=== PATIENT | female | born 1985 | race Caucasian/White ===

== ENCOUNTER 2016-04-11 08:47 | Emergency (ER) | payer OTHER ==
--- NOTE | 2016-04-11 10:12 | ED ---
Skin/Abscess/FB HPI - General Chief complaint: Skin/Abscess/Foreign Body Stated complaint: Arm infection Time Seen by Provider: 04/11/16 10:06 Source: patient, RN notes reviewed Mode of arrival: ambulatory Limitations: no limitations - History of Present Illness Initial comments: 30-year-old female presents to the emergency department with a chief complaint of right arm swelling and redness. Patient states that she is a heroin abuser. Patient states that she injected about 3 days ago and she believes part of the needle broke off. Patient states she's been applying warm compresses but is not significantly getting better. Patient has noticed some swelling to the arm. Patient denies any fever or chills. Patient states that she has not had any other symptoms with this. Patient states that there is no pain with movement of the right elbow. Patient denies any recent fever, chills, shortness of breath, chest pain, back pain, abdominal pain, nausea vomiting, numbness or tingling, dysuria or hematuria, constipation or diarrhea, headaches or visual changes, or any other current symptoms. - Related Data Home Medications Medication Instructions Recorded Confirmed Ibuprofen [Motrin] 400 mg PO Q6HR PRN 04/11/16 04/11/16 Naproxen Sodium [Aleve] 220 mg PO Q12HR PRN 04/11/16 04/11/16 Previous Rx's Medication Instructions Recorded Sulfamethox-Tmp 800-160Mg [Bactrim 2 each PO Q12HR #56 tab 04/11/16 DS 800-160 mg] Allergies Allergy/AdvReac Type Severity Reaction Status Date / Time No Known Allergies Allergy Verified 04/11/16 10:22 Review of Systems ROS Statement: Those systems with pertinent positive or pertinent negative responses have been documented in the HPI. ROS Other: All systems not noted in ROS Statement are negative. Past Medical History Additional Past Medical History / Comment(s): CARPAL TUNNEL History of Any Multi-Drug Resistant Organisms: None Reported Past Surgical History: No Surgical Hx Reported Past Psychological History: Depression Smoking Status: Current every day smoker Past Alcohol Use History: None Reported Past Drug Use History: Heroin General Exam - General Exam Comments Initial Comments: General: The patient is awake and alert, in no distress, and does not appear acutely ill. Neck: The neck is supple, there is no tenderness. Cardiovascular: There is a regular rate and rhythm. No murmur, rub or gallop is appreciated. Respiratory: Lungs are clear to auscultation, respirations are non-labored, breath sounds are equal. No wheezes, stridor, rales, or rhonchi. Musculoskeletal: Sensation intact with 2+ pulses that the right upper extremity. Full range of motion of right shoulder right elbow and right wrist. Patient does appear to have a small abscess to the medial aspect of the right elbow there is some fluctuation. No associated cellulitis noted. Neurological: CN II-XII intact, There are no obvious motor or sensory deficits. Coordination appears grossly intact. Speech is normal. Skin: Skin is warm and dry and no rashes or lesions are noted. Psychiatric: Normal mood and affect. Limitations: no limitations Course Vital Signs 04/11/16 08:57 Temperature 98.1 F Pulse Rate 88 Respiratory 20 Rate Blood Pressure 113/94 O2 Sat by Pulse 99 Oximetry Procedures - Procedures Initial comment: Procedure: Incision and drainage The skin overlying the abscess was prepped with Betadine, and anesthetized with 1% lidocaine without epinephrine. A #11 scalpel was then used to incise the abscess. Some purulent material was then extracted from the lesion. A foreign body was also removed from the wound. It was a needle. Gauze dressing placed on top, The patient tolerated the procedure well. Medical Decision Making - Medical Decision Making 30-year-old female presents emergency Department with a chief complaint of right elbow pain and what appears to be an abscess. At this time patient underwent an x-ray. At this time x-ray does show with removal of the foreign body. Patient did have an I&D due to there was purulent material at the site. At this time we will set the patient antibiotics. We discussed return for follow-up. Patient stated that she understood. We discussed. I'm. Patient's questions were answered. She will be discharged. - Radiology Data Radiology results: report reviewed, image reviewed Disposition Clinical Impression: Abscess of right forearm, Foreign body in right forearm Disposition: HOME SELF-CARE Condition: Stable Instructions: Abscess (ED) Additional Instructions: Please use medication as discussed. Please follow up with family doctor if symptoms have not improved over the next two days. Please return to the emergency room if your symptoms increase or worsen or for any other concerns. Prescriptions: Sulfamethox-Tmp 800-160Mg [Bactrim DS 800-160 mg] 2 each PO Q12HR #56 tab Referrals: Yemi Burk MD [STAFF PHYSICIAN] - 1-2 days Time of Disposition: 10:42
--- NOTE | 2016-04-11 10:16 | XR ---
EXAMINATION TYPE: XR elbow complete RT DATE OF EXAM: 04/11/2016 10:09 AM COMPARISON: NONE HISTORY: Foreign body TECHNIQUE: 3 view right elbow FINDINGS: Soft tissue swelling is in the antecubital fossa. There is a radiopaque foreign body within the antecubital fossa region. This is relatively superficial. The osseous structures appear intact. Radius aligns normally with the humerus. Anterior and posterior fat pads are normal. IMPRESSION: 1. Radiopaque foreign body within the antecubital fossa.
--- NOTE | 2016-04-11 10:37 | XR ---
EXAMINATION TYPE: XR elbow limited RT DATE OF EXAM: 04/11/2016 10:32 AM COMPARISON: NONE HISTORY: Radiopaque foreign body right elbow TECHNIQUE: 2 views right elbow FINDINGS: Previous superficial radiopaque foreign body is been removed. Soft tissue swelling over the antecubital fossa region remains present. IMPRESSION: 1. Removal of the previous foreign body.
[2016-04-11 10:51] VITALS: BP 105/73; PULSE 93; RESP 18; TEMP 98.4
== END 2016-04-11 10:50 | disposition home or self-care (01) ==
LOC: EC 08:47
DX: L02.413 Cutaneous abscess of right upper limb (principal); M79.5 Residual foreign body in soft tissue; F17.200 Nicotine dependence, unspecified, uncomplicated
CPT/HCPCS: 10060; 10120; 99283

== ENCOUNTER 2016-10-08 01:26 | Observation (INO) | payer OTHER ==
[2016-10-08 01:31] VITALS: RESP 16
[2016-10-08] MEDS ORDERED: SODIUM CHLORIDE 0.9% 1,000 ML IV ONE (01:39)
[2016-10-08 02:09] LABS: Basophils # (A) 0.1 k/uL (0-0.2); Basophils % (A) 1 %; CH 30.9; CHCM 36.5; Eosinophils # (A) 0.2 k/uL (0-0.7); Eosinophils % (A) 3 %; HDW 2.95; HGB 13.5 gm/dL (11.4-16.0); Luc # (Auto) 0.16; Luc % (Auto) 2; Lymphocytes % (A) 28 %; MCH 29.5 pg (25.0-35.0); MCHC 34.7 g/dL (31.0-37.0); Mean Platelet Volume 8.5; Monocytes # (A) 0.4 k/uL (0-1.0); Monocytes % (A) 6 %; Neutrophils # (A) 4.3 k/uL (1.3-7.7); Neutrophils % (A) 59 %; RBC 4.59 m/uL (3.80-5.40); RDW 13.9 % (11.5-15.5); WBC 7.2 k/uL (3.8-10.6); WBC (Perox) 7.08
[2016-10-08 02:21] LABS: ALT 107 U/L (9-52); AST 49 U/L (14-36); Acetaminophen <10.0 ug/mL; Alcohol <10 mg/dL; Alkaline Phosphatase 67 U/L (38-126); Anion Gap 13 mmol/L; Blood Urea Nitrogen 16 mg/dL (7-17); Carbon Dioxide 22 mmol/L (22-30); Chloride 108 mmol/L (98-107); Glucose 75 mg/dL (74-99); Non-African American GFR(MDRD) >60 (>60 ml/min/1.73 sqM); Potassium 3.2 mmol/L (3.5-5.1); Salicylate <1.0 mg/dL; Sodium 143 mmol/L (137-145); Total Bilirubin 1.7 mg/dL (0.2-1.3); Total Protein 6.7 g/dL (6.3-8.2)
[2016-10-08] MEDS ORDERED: NALOXONE 0.4 MG/ML 1 ML VIAL IV PRN (03:12)
[2016-10-08] MEDS ORDERED: SODIUM CHLORIDE 0.9% 1,000 ML IV SCH (03:15)
--- NOTE | 2016-10-08 03:25 | ED ---
General Adult HPI - General Chief complaint: Alcohol Stated complaint: ETOH Time Seen by Provider: 10/08/16 01:34 Source: patient, EMS, RN notes reviewed Mode of arrival: EMS Limitations: no limitations - History of Present Illness Initial comments: 31-year-old female presents by EMS with chief complaint of alcohol intoxication. Patient was unable to contribute to history. EMS was called by family member who was not present on scene. There was no substances found at the scene. She does have a history of opiate overdose and heroin abuse in the past. Patient is arousable with sternal rub. On questioning she does admit to taking approximately 5 Xanax, unknown strength. Denies alcohol intoxication. Patient does deny suicidal or homicidal ideation. However complete history is not possible at this time. - Related Data Home Medications Medication Instructions Recorded Confirmed Ibuprofen [Motrin] 400 mg PO Q6HR PRN 04/11/16 04/11/16 Naproxen Sodium [Aleve] 220 mg PO Q12HR PRN 04/11/16 04/11/16 Previous Rx's Medication Instructions Recorded Sulfamethox-Tmp 800-160Mg [Bactrim 2 each PO Q12HR #56 tab 04/11/16 DS 800-160 mg] Allergies Allergy/AdvReac Type Severity Reaction Status Date / Time No Known Allergies Allergy Verified 10/08/16 01:31 Review of Systems ROS Statement: Those systems with pertinent positive or pertinent negative responses have been documented in the HPI. ROS Other: All systems not noted in ROS Statement are negative. Past Medical History Additional Past Medical History / Comment(s): CARPAL TUNNEL History of Any Multi-Drug Resistant Organisms: None Reported Past Surgical History: No Surgical Hx Reported Past Psychological History: Depression Smoking Status: Current every day smoker Past Alcohol Use History: None Reported Past Drug Use History: Heroin General Exam Limitations: no limitations General appearance: in no apparent distress, lethargic Head exam: Present: atraumatic, normocephalic Eye exam: Present: normal appearance, PERRL ENT exam: Present: mucous membranes moist Neck exam: Present: normal inspection. Absent: tenderness, meningismus Respiratory exam: Present: normal lung sounds bilaterally. Absent: respiratory distress Cardiovascular Exam: Present: regular rate, normal rhythm GI/Abdominal exam: Present: soft. Absent: distended, tenderness External exam: Present: normal external exam Extremities exam: Present: normal inspection, full ROM, normal capillary refill. Absent: pedal edema Back exam: Present: normal inspection, full ROM Neurological exam: Absent: motor sensory deficit Psychiatric exam: Present: flat affect Skin exam: Present: warm, dry, intact. Absent: cyanosis, diaphoretic Course Vital Signs 10/08/16 01:28 Temperature 97.8 F Pulse Rate 89 Respiratory 16 Rate Blood Pressure 123/85 O2 Sat by Pulse 98 Oximetry EKG Findings - EKG Comments: EKG Findings:: EKG shows normal sinus rhythm, ventricular rate 81, CA interval 136, QRS duration 84, QTC is prolonged at 496, no ST segment elevation or depression Medical Decision Making - Medical Decision Making 31-year-old female presents with altered mental status. Patient does admit to taking approximally 5 Xanax. She denies suicidal ideation. Examination shows no focal neurologic findings. Patient is lethargic but arousable to sternal rub. She will answer simple questions. Laboratory studies including CBC, CMP, are unremarkable. Tylenol and aspirin levels are nondetectable. Alcohol is less than 10. Urinalysis is positive for amphetamines, and benzodiazepines. Patient's presentation is consistent with benzodiazepine overdose. On reevaluation, patient's neurological examination is unchanged. No focal findings. She will still respond. She is protecting her airway. Patient will be admitted for reevaluation. Psychiatry is placed on consult as I 'm not confident in the patient's mental status at this time. Unable to assess her suicide risk. Diagnosis: Benzodiazepine overdose - Lab Data Result diagrams: 10/08/16 01:58 10/08/16 01:58 Lab Results 10/08/16 10/08/16 10/08/16 Range/Units 01:58 01:58 02:53 WBC 7.2 (3.8-10.6) k/uL RBC 4.59 (3.80-5.40) m/uL Hgb 13.5 (11.4-16.0) gm/dL Hct 39.0 (34.0-46.0) % MCV 85.0 (80.0-100.0) fL MCH 29.5 (25.0-35.0) pg MCHC 34.7 (31.0-37.0) g/dL RDW 13.9 (11.5-15.5) % Plt Count 240 (150-450) k/uL Neutrophils % 59 % Lymphocytes % 28 % Monocytes % 6 % Eosinophils % 3 % Basophils % 1 % Neutrophils # 4.3 (1.3-7.7) k/uL Lymphocytes # 2.0 (1.0-4.8) k/uL Monocytes # 0.4 (0-1.0) k/uL Eosinophils # 0.2 (0-0.7) k/uL Basophils # 0.1 (0-0.2) k/uL Sodium 143 (137-145) mmol/L Potassium 3.2 L (3.5-5.1) mmol/L Chloride 108 H (98-107) mmol/L Carbon Dioxide 22 (22-30) mmol/L Anion Gap 13 mmol/L BUN 16 (7-17) mg/dL Creatinine 0.60 (0.52-1.04) mg/dL Est GFR (MDRD) Af Amer >60 (>60 ml/min/1.73 sqM) Est GFR (MDRD) Non-Af >60 (>60 ml/min/1.73 sqM) Glucose 75 (74-99) mg/dL Calcium 9.0 (8.4-10.2) mg/dL Total Bilirubin 1.7 H (0.2-1.3) mg/dL AST 49 H (14-36) U/L ALT 107 H (9-52) U/L Alkaline Phosphatase 67 (38-126) U/L Total Protein 6.7 (6.3-8.2) g/dL Albumin 4.1 (3.5-5.0) g/dL Urine HCG, Qual (Not Detectd) Salicylates <1.0 mg/dL Urine Opiates Screen Not Detected (NotDetected) Ur Oxycodone Screen Not Detected (NotDetected) Urine Methadone Screen Not Detected (NotDetected) Ur Propoxyphene Screen Not Detected (NotDetected) Acetaminophen <10.0 ug/mL Ur Barbiturates Screen Not Detected (NotDetected) U Tricyclic Antidepress Not Detected (NotDetected) Ur Phencyclidine Scrn Not Detected (NotDetected) Ur Amphetamines Screen Detected H (NotDetected) U Methamphetamines Scrn Detected H (NotDetected) U Benzodiazepines Scrn Detected H (NotDetected) Urine Cocaine Screen Not Detected (NotDetected) U Marijuana (THC) Screen Not Detected (NotDetected) Serum Alcohol <10 mg/dL 10/08/16 Range/Units 02:53 WBC (3.8-10.6) k/uL RBC (3.80-5.40) m/uL Hgb (11.4-16.0) gm/dL Hct (34.0-46.0) % MCV (80.0-100.0) fL MCH (25.0-35.0) pg MCHC (31.0-37.0) g/dL RDW (11.5-15.5) % Plt Count (150-450) k/uL Neutrophils % % Lymphocytes % % Monocytes % % Eosinophils % % Basophils % % Neutrophils # (1.3-7.7) k/uL Lymphocytes # (1.0-4.8) k/uL Monocytes # (0-1.0) k/uL Eosinophils # (0-0.7) k/uL Basophils # (0-0.2) k/uL Sodium (137-145) mmol/L Potassium (3.5-5.1) mmol/L Chloride (98-107) mmol/L Carbon Dioxide (22-30) mmol/L Anion Gap mmol/L BUN (7-17) mg/dL Creatinine (0.52-1.04) mg/dL Est GFR (MDRD) Af Amer (>60 ml/min/1.73 sqM) Est GFR (MDRD) Non-Af (>60 ml/min/1.73 sqM) Glucose (74-99) mg/dL Calcium (8.4-10.2) mg/dL Total Bilirubin (0.2-1.3) mg/dL AST (14-36) U/L ALT (9-52) U/L Alkaline Phosphatase (38-126) U/L Total Protein (6.3-8.2) g/dL Albumin (3.5-5.0) g/dL Urine HCG, Qual Not Detected (Not Detectd) Salicylates mg/dL Urine Opiates Screen (NotDetected) Ur Oxycodone Screen (NotDetected) Urine Methadone Screen (NotDetected) Ur Propoxyphene Screen (NotDetected) Acetaminophen ug/mL Ur Barbiturates Screen (NotDetected) U Tricyclic Antidepress (NotDetected) Ur Phencyclidine Scrn (NotDetected) Ur Amphetamines Screen (NotDetected) U Methamphetamines Scrn (NotDetected) U Benzodiazepines Scrn (NotDetected) Urine Cocaine Screen (NotDetected) U Marijuana (THC) Screen (NotDetected) Serum Alcohol mg/dL Critical Care Time Critical Care Time: Yes Total Critical Care Time: 35 Disposition Clinical Impression: Benzodiazepine overdose Disposition: ADMITTED IP TO THIS [facility] Condition: Stable Referrals: None,Stated [Primary Care Provider] - 1-2 days Decision to Admit Reason: Admit from EC Decision Date: 10/08/16 Decision Time: 03:25
[2016-10-08 07:13] VITALS: BP 121/81; PULSE 88; TEMP 98
--- NOTE | 2016-10-08 10:07 | P.HPIM ---
History of Present Illness Is a discharge summary as well patient left against medical respiration number had some slight radiation patient was admitted for benzo overdose this was accidental There is no position that was made hence patient was never evaluated and left against medical advise. Past Medical History Additional Past Medical History / Comment(s): CARPAL TUNNEL History of Any Multi-Drug Resistant Organisms: None Reported Past Surgical History: No Surgical Hx Reported Past Psychological History: Depression Smoking Status: Unknown if ever smoked Past Alcohol Use History: None Reported Past Drug Use History: Heroin Medications and Allergies Home Medications Medication Instructions Recorded Confirmed Type No Known Home Medications [No 10/08/16 10/08/16 History Known Home Medications] Allergies Allergy/AdvReac Type Severity Reaction Status Date / Time No Known Allergies Allergy Verified 10/08/16 08:25 Physical Exam Vitals: Vital Signs Temp Pulse Pulse Resp BP BP Pulse Ox 10/08/16 07:12 98 F 88 16 121/81 96 10/08/16 05:30 97.8 F 83 16 104/64 99 10/08/16 03:23 90 16 114/79 98 10/08/16 01:28 97.8 F 89 16 123/85 98 Intake and Output 10/07/16 10/08/16 10/08/16 22:59 06:59 14:59 Intake Total 75 Balance 75 Intake: Intake, IV Titration 75 Amount Sodium Chloride 0.9% 1, 75 000 ml @ 75 mls/hr IV . [id number] Rx#:[id number] Other: Weight 67.132 kg Results CBC & Chem 7: 10/08/16 01:58 10/08/16 01:58 Labs: Abnormal Lab Results - Last 24 Hours (Table) 10/08/16 10/08/16 Range/Units 01:58 02:53 Potassium 3.2 L (3.5-5.1) mmol/L Chloride 108 H (98-107) mmol/L Total Bilirubin 1.7 H (0.2-1.3) mg/dL AST 49 H (14-36) U/L ALT 107 H (9-52) U/L Ur Amphetamines Screen Detected H (NotDetected) U Methamphetamines Scrn Detected H (NotDetected) U Benzodiazepines Scrn Detected H (NotDetected) Thrombosis Risk Factor Assmnt - Choose All That Apply Any of the Below Risk Factors Present?: No
== END 2016-10-08 09:58 | disposition left against medical advice (07) ==
LOC: EC 01:26 → 3SUR 03:16
PROVIDERS: ADMIT Internal Medicine; ATTEND Internal Medicine
DX: T42.4X1A Poisoning by benzodiazepines, accidental (unintentional), initial encounter (principal); Z53.21 Procedure and treatment not carried out due to patient leaving prior to being seen by health care provider; F32.9 Major depressive disorder, single episode, unspecified; F17.200 Nicotine dependence, unspecified, uncomplicated; Z87.898 Personal history of other specified conditions
CPT/HCPCS: 99291; 96360; 36415; 93005; 80053; 85025; 81025; 80306; 83520 ×2; 80320; G0378

== ENCOUNTER 2017-02-22 18:53 | Inpatient (IN) | payer OTHER ==
[2017-02-22] MEDS ORDERED: SODIUM CHLORIDE 0.9% 1,000 ML IV STA (19:48)
[2017-02-22] MEDS ORDERED: ACETAMINOPHEN TAB 500 MG TAB PO STA (19:49)
--- NOTE | 2017-02-22 20:07 | ED ---
General Adult HPI - General Chief complaint: Chest Pain Stated complaint: Chest pain Time Seen by Provider: 02/22/17 19:36 Source: patient, RN notes reviewed, old records reviewed Mode of arrival: ambulatory Limitations: no limitations - History of Present Illness Initial comments: 31-year-old female presents for evaluation of sharp central chest pain. Pain is been present for the past 3 days. She has had cough, nasal congestion and sore throat. Patient has had subjective fever and chills over this time as well. She does report some pain with deep inspiration. Pain is over her sternum. Patient has been suppressing her cough secondary to pain. Denies abdominal pain. Denies dysuria. Patient did have a contusion to her right lower extremity passively 5 days ago. She is currently in a brace. No history of DVT or PE. Not currently on oral contraceptives. - Related Data Home Medications Medication Instructions Recorded Confirmed No Known Home Medications [No 10/08/16 02/22/17 Known Home Medications] Allergies Allergy/AdvReac Type Severity Reaction Status Date / Time No Known Allergies Allergy Verified 02/22/17 20:55 Review of Systems ROS Statement: Those systems with pertinent positive or pertinent negative responses have been documented in the HPI. ROS Other: All systems not noted in ROS Statement are negative. Past Medical History Additional Past Medical History / Comment(s): CARPAL TUNNEL History of Any Multi-Drug Resistant Organisms: None Reported Past Surgical History: No Surgical Hx Reported Past Psychological History: Depression Smoking Status: Current every day smoker Past Alcohol Use History: None Reported Past Drug Use History: Heroin General Exam Limitations: no limitations General appearance: alert, in no apparent distress Head exam: Present: atraumatic, normocephalic Eye exam: Present: normal appearance, PERRL ENT exam: Present: mucous membranes dry Neck exam: Present: normal inspection. Absent: tenderness, meningismus Respiratory exam: Present: normal lung sounds bilaterally, chest wall tenderness. Absent: respiratory distress Cardiovascular Exam: Present: normal rhythm, tachycardia GI/Abdominal exam: Present: soft. Absent: distended, tenderness, guarding Extremities exam: Present: normal inspection, normal capillary refill. Absent: pedal edema Back exam: Present: normal inspection, full ROM Neurological exam: Present: alert, CN II-XII intact. Absent: oriented X3, motor sensory deficit Psychiatric exam: Present: normal affect, normal mood Skin exam: Present: warm, dry, intact. Absent: cyanosis, diaphoretic Course Vital Signs 02/22/17 02/22/17 02/22/17 19:12 20:52 21:00 Temperature 102.9 F H Pulse Rate 130 H 114 H 126 H Respiratory 18 20 20 Rate Blood Pressure 110/60 110/57 109/55 O2 Sat by Pulse 95 97 98 Oximetry 02/22/17 02/22/17 02/22/17 21:13 21:29 21:57 Temperature 100.9 F H Pulse Rate 111 H 111 H Respiratory 22 22 22 Rate Blood Pressure 110/61 110/64 O2 Sat by Pulse 97 98 Oximetry 02/22/17 22:00 Temperature Pulse Rate 104 H Respiratory 22 Rate Blood Pressure 118/54 O2 Sat by Pulse 98 Oximetry EKG Findings - EKG Comments: EKG Findings:: Chest x-ray shows sinus tachycardia, ventricular rate 137, GA interval 142, castration 80, QTc 465 no signs of ischemia Medical Decision Making - Medical Decision Making 31-year-old female presenting with dyspnea and chest pain. Patient is febrile and tachycardic. She is in moderate distress at the time my initial evaluation. Chest x-rays obtained, shows right lower lobe pneumonia. Ultrasound of the right lower extremity is obtained for concerns of DVT as the patient had contusion 5 days ago, has had some swelling, and is tachycardic and tachypneic. This is negative for DVT. CT angiography obtained shows bilateral pulmonary infiltrates concern for cavitation and possibility of septic emboli. This does fit with the patient's clinical picture as well as history of IV drug use. She states she most recently used IV heroin approximately 3 days ago. White blood cell count 10.8, hemoglobin 11.3, d-dimer elevated potassium 3.1 this is replaced. Sodium is low 126 per patient does have elevation in liver enzymes, she hepatitis panel is pending. This may be secondary to hypoperfusion. Patient is started on broad-spectrum antibiotics including vancomycin, and Zosyn. Echo is pending. Case discussed with Dr. Silva will accept the patient to ICU. Cardiology and infectious disease are placed on consult. - Lab Data Result diagrams: 02/22/17 20:16 02/22/17 20:16 Lab Results 02/22/17 02/22/17 02/22/17 Range/Units 20:16 20:16 20:16 WBC 10.8 H (3.8-10.6) k/uL RBC 4.09 (3.80-5.40) m/uL Hgb 11.3 L (11.4-16.0) gm/dL Hct 32.7 L (34.0-46.0) % MCV 80.0 (80.0-100.0) fL MCH 27.7 (25.0-35.0) pg MCHC 34.6 (31.0-37.0) g/dL RDW 14.2 (11.5-15.5) % Plt Count 113 L (150-450) k/uL Neutrophils % 85 % Lymphocytes % 7 % Monocytes % 4 % Eosinophils % 1 % Basophils % 0 % Neutrophils # 9.2 H (1.3-7.7) k/uL Lymphocytes # 0.7 L (1.0-4.8) k/uL Monocytes # 0.4 (0-1.0) k/uL Eosinophils # 0.1 (0-0.7) k/uL Basophils # 0.0 (0-0.2) k/uL PT (9.0-12.0) sec INR (<1.2) APTT (22.0-30.0) sec D-Dimer (<0.60) mg/L FEU Sodium 126 L (137-145) mmol/L Potassium 3.1 L (3.5-5.1) mmol/L Chloride 88 L (98-107) mmol/L Carbon Dioxide 31 H (22-30) mmol/L Anion Gap 7 mmol/L BUN 20 H (7-17) mg/dL Creatinine 0.80 (0.52-1.04) mg/dL Est GFR (MDRD) Af Amer >60 (>60 ml/min/1.73 sqM) Est GFR (MDRD) Non-Af >60 (>60 ml/min/1.73 sqM) Glucose 97 (74-99) mg/dL Calcium 8.0 L (8.4-10.2) mg/dL Magnesium 2.2 (1.6-2.3) mg/dL Total Bilirubin 1.2 (0.2-1.3) mg/dL AST 119 H (14-36) U/L ALT 89 H (9-52) U/L Alkaline Phosphatase 146 H (38-126) U/L Total Creatine Kinase 358 H (30-135) U/L CK-MB (CK-2) 1.0 (0.0-2.4) ng/mL CK-MB (CK-2) Rel Index 0.3 Troponin I <0.012 (0.000-0.034) ng/mL Total Protein 6.0 L (6.3-8.2) g/dL Albumin 2.9 L (3.5-5.0) g/dL Lipase 33 (23-300) U/L Urine Color Urine Appearance (Clear) Urine pH (5.0-8.0) Ur Specific [place] (1.001-1.035) Urine Protein (Negative) Urine Glucose (UA) (Negative) Urine Ketones (Negative) Urine Blood (Negative) Urine Nitrite (Negative) Urine Bilirubin (Negative) Urine Urobilinogen (<2.0) mg/dL Ur Leukocyte Esterase (Negative) Urine RBC (0-5) /hpf Urine WBC (0-5) /hpf Ur Squamous Epith Cells (0-4) /hpf Urine Bacteria (None) /hpf Hyaline Casts (0-2) /lpf Urine Mucus (None) /hpf Urine HCG, Qual (Not Detectd) Urine Opiates Screen (NotDetected) Ur Oxycodone Screen (NotDetected) Urine Methadone Screen (NotDetected) Ur Propoxyphene Screen (NotDetected) Ur Barbiturates Screen (NotDetected) U Tricyclic Antidepress (NotDetected) Ur Phencyclidine Scrn (NotDetected) Ur Amphetamines Screen (NotDetected) U Methamphetamines Scrn (NotDetected) U Benzodiazepines Scrn (NotDetected) Urine Cocaine Screen (NotDetected) U Marijuana (THC) Screen (NotDetected) Influenza Type A RNA (Not Detectd) Influenza Type B (PCR) (Not Detectd) 02/22/17 02/22/17 02/22/17 Range/Units 20:16 20:16 20:16 WBC (3.8-10.6) k/uL RBC (3.80-5.40) m/uL Hgb (11.4-16.0) gm/dL Hct (34.0-46.0) % MCV (80.0-100.0) fL MCH (25.0-35.0) pg MCHC (31.0-37.0) g/dL RDW (11.5-15.5) % Plt Count (150-450) k/uL Neutrophils % % Lymphocytes % % Monocytes % % Eosinophils % % Basophils % % Neutrophils # (1.3-7.7) k/uL Lymphocytes # (1.0-4.8) k/uL Monocytes # (0-1.0) k/uL Eosinophils # (0-0.7) k/uL Basophils # (0-0.2) k/uL PT 10.8 (9.0-12.0) sec INR 1.1 (<1.2) APTT 28.4 (22.0-30.0) sec D-Dimer 2.14 H (<0.60) mg/L FEU Sodium (137-145) mmol/L Potassium (3.5-5.1) mmol/L Chloride (98-107) mmol/L Carbon Dioxide (22-30) mmol/L Anion Gap mmol/L BUN (7-17) mg/dL Creatinine (0.52-1.04) mg/dL Est GFR (MDRD) Af Amer (>60 ml/min/1.73 sqM) Est GFR (MDRD) Non-Af (>60 ml/min/1.73 sqM) Glucose (74-99) mg/dL Calcium (8.4-10.2) mg/dL Magnesium (1.6-2.3) mg/dL Total Bilirubin (0.2-1.3) mg/dL AST (14-36) U/L ALT (9-52) U/L Alkaline Phosphatase (38-126) U/L Total Creatine Kinase (30-135) U/L CK-MB (CK-2) (0.0-2.4) ng/mL CK-MB (CK-2) Rel Index Troponin I (0.000-0.034) ng/mL Total Protein (6.3-8.2) g/dL Albumin (3.5-5.0) g/dL Lipase (23-300) U/L Urine Color Yellow Urine Appearance Cloudy H (Clear) Urine pH 6.0 (5.0-8.0) Ur Specific [place] 1.015 (1.001-1.035) Urine Protein 2+ H (Negative) Urine Glucose (UA) Negative (Negative) Urine Ketones Negative (Negative) Urine Blood Small H (Negative) Urine Nitrite Negative (Negative) Urine Bilirubin Negative (Negative) Urine Urobilinogen 8.0 (<2.0) mg/dL Ur Leukocyte Esterase Trace H (Negative) Urine RBC 1 (0-5) /hpf Urine WBC 11 H (0-5) /hpf Ur Squamous Epith Cells 2 (0-4) /hpf Urine Bacteria Many H (None) /hpf Hyaline Casts 32 H (0-2) /lpf Urine Mucus Rare H (None) /hpf Urine HCG, Qual (Not Detectd) Urine Opiates Screen (NotDetected) Ur Oxycodone Screen (NotDetected) Urine Methadone Screen (NotDetected) Ur Propoxyphene Screen (NotDetected) Ur Barbiturates Screen (NotDetected) U Tricyclic Antidepress (NotDetected) Ur Phencyclidine Scrn (NotDetected) Ur Amphetamines Screen (NotDetected) U Methamphetamines Scrn (NotDetected) U Benzodiazepines Scrn (NotDetected) Urine Cocaine Screen (NotDetected) U Marijuana (THC) Screen (NotDetected) Influenza Type A RNA Not Detected (Not Detectd) Influenza Type B (PCR) Not Detected (Not Detectd) 02/22/17 02/22/17 Range/Units 20:16 20:16 WBC (3.8-10.6) k/uL RBC (3.80-5.40) m/uL Hgb (11.4-16.0) gm/dL Hct (34.0-46.0) % MCV (80.0-100.0) fL MCH (25.0-35.0) pg MCHC (31.0-37.0) g/dL RDW (11.5-15.5) % Plt Count (150-450) k/uL Neutrophils % % Lymphocytes % % Monocytes % % Eosinophils % % Basophils % % Neutrophils # (1.3-7.7) k/uL Lymphocytes # (1.0-4.8) k/uL Monocytes # (0-1.0) k/uL Eosinophils # (0-0.7) k/uL Basophils # (0-0.2) k/uL PT (9.0-12.0) sec INR (<1.2) APTT (22.0-30.0) sec D-Dimer (<0.60) mg/L FEU Sodium (137-145) mmol/L Potassium (3.5-5.1) mmol/L Chloride (98-107) mmol/L Carbon Dioxide (22-30) mmol/L Anion Gap mmol/L BUN (7-17) mg/dL Creatinine (0.52-1.04) mg/dL Est GFR (MDRD) Af Amer (>60 ml/min/1.73 sqM) Est GFR (MDRD) Non-Af (>60 ml/min/1.73 sqM) Glucose (74-99) mg/dL Calcium (8.4-10.2) mg/dL Magnesium (1.6-2.3) mg/dL Total Bilirubin (0.2-1.3) mg/dL AST (14-36) U/L ALT (9-52) U/L Alkaline Phosphatase (38-126) U/L Total Creatine Kinase (30-135) U/L CK-MB (CK-2) (0.0-2.4) ng/mL CK-MB (CK-2) Rel Index Troponin I (0.000-0.034) ng/mL Total Protein (6.3-8.2) g/dL Albumin (3.5-5.0) g/dL Lipase (23-300) U/L Urine Color Urine Appearance (Clear) Urine pH (5.0-8.0) Ur Specific [place] (1.001-1.035) Urine Protein (Negative) Urine Glucose (UA) (Negative) Urine Ketones (Negative) Urine Blood (Negative) Urine Nitrite (Negative) Urine Bilirubin (Negative) Urine Urobilinogen (<2.0) mg/dL Ur Leukocyte Esterase (Negative) Urine RBC (0-5) /hpf Urine WBC (0-5) /hpf Ur Squamous Epith Cells (0-4) /hpf Urine Bacteria (None) /hpf Hyaline Casts (0-2) /lpf Urine Mucus (None) /hpf Urine HCG, Qual Not Detected (Not Detectd) Urine Opiates Screen Detected H (NotDetected) Ur Oxycodone Screen Detected H (NotDetected) Urine Methadone Screen Not Detected (NotDetected) Ur Propoxyphene Screen Not Detected (NotDetected) Ur Barbiturates Screen Not Detected (NotDetected) U Tricyclic Antidepress Not Detected (NotDetected) Ur Phencyclidine Scrn Not Detected (NotDetected) Ur Amphetamines Screen Not Detected (NotDetected) U Methamphetamines Scrn Not Detected (NotDetected) U Benzodiazepines Scrn Detected H (NotDetected) Urine Cocaine Screen Not Detected (NotDetected) U Marijuana (THC) Screen Not Detected (NotDetected) Influenza Type A RNA (Not Detectd) Influenza Type B (PCR) (Not Detectd) Critical Care Time Critical Care Time: Yes Total Critical Care Time: 35 Disposition Clinical Impression: Septic pulmonary embolism, Sepsis Disposition: ADMITTED IP TO THIS [facility] Condition: Serious Referrals: Danna Fountain MD [Primary Care Provider] - 1-2 days Decision to Admit Reason: Admit from EC Decision Date: 02/22/17 Decision Time: 22:23
[2017-02-22 20:27] LABS: Basophils % (A) 0 %; Eosinophils # (A) 0.1 k/uL (0-0.7); Eosinophils % (A) 1 %; HCT 32.7 % (34.0-46.0); HGB 11.3 gm/dL (11.4-16.0); Lymphocytes # (A) 0.7 k/uL (1.0-4.8); Lymphocytes % (A) 7 %; MCH 27.7 pg (25.0-35.0); MCHC 34.6 g/dL (31.0-37.0); Mean Platelet Volume 10.9; Monocytes # (A) 0.4 k/uL (0-1.0); Monocytes % (A) 4 %; Neutrophils # (A) 9.2 k/uL (1.3-7.7); Neutrophils % (A) 85 %; Platelet Count 113 k/uL (150-450); RBC 4.09 m/uL (3.80-5.40); RDW 14.2 % (11.5-15.5); WBC 10.8 k/uL (3.8-10.6)
[2017-02-22 20:34] LABS: Appearance,Urine Cloudy (Clear); Bacteria,Urine Many /hpf; Bilirubin,Urine Negative (Negative); Blood,Urine Small (Negative); Color,Urine Yellow; Glucose,Urine (UA) Negative (Negative); Hyaline Casts,Urine 32 /lpf (0-2); Ketones,Urine Negative (Negative); Leukocyte Esterase,Urine Trace (Negative); Mucus,Urine Rare /hpf; Nitrite,Urine Negative (Negative); Protein,Urine 2+ (Negative); RBC,Urine 1 /hpf (0-5); Specific Gravity,Urine 1.015 (1.001-1.035); Squamous Epithelial Cell,Urine 2 /hpf (0-4); WBC,Urine 11 /hpf (0-5)
[2017-02-22 20:37] LABS: D-Dimer 2.14 mg/L FEU (<0.60)
[2017-02-22 20:38] LABS: ALT 89 U/L (9-52); AST 119 U/L (14-36); Albumin 2.9 g/dL (3.5-5.0); Alkaline Phosphatase 146 U/L (38-126); Anion Gap 7 mmol/L; Blood Urea Nitrogen 20 mg/dL (7-17); Carbon Dioxide 31 mmol/L (22-30); Chloride 88 mmol/L (98-107); Glucose 97 mg/dL (74-99); Lipase 33 U/L (23-300); Magnesium 2.2 mg/dL (1.6-2.3); Potassium 3.1 mmol/L (3.5-5.1); Sodium 126 mmol/L (137-145); Total Bilirubin 1.2 mg/dL (0.2-1.3)
[2017-02-22 20:45] LABS: INR 1.1 (<1.2); Partial Thromboplastin Time 28.4 sec (22.0-30.0); Prothrombin Time 10.8 sec (9.0-12.0)
[2017-02-22 20:47] LABS: Creatine Kinase 358 U/L (30-135)
--- NOTE | 2017-02-22 20:47 | XR ---
EXAMINATION TYPE: XR chest 2V DATE OF EXAM: 02/22/2017 COMPARISON: NONE HISTORY: Chest pain TECHNIQUE: Frontal and lateral views of the chest are obtained. FINDINGS: Heart and mediastinum are normal. There is some mild nodular infiltrate in the right lower lobe. The left lung is clear. There is no heart failure. There are chest leads. There is no sign of pleural effusion. IMPRESSION: Mild right lower lobe pneumonia. Normal heart.
[2017-02-22] MEDS ORDERED: POTASSIUM CHLORIDE ER 20 MEQ TAB.ER PO STA (20:54)
[2017-02-22] MEDS ORDERED: RX INFO: IV CONTRAST WAS GIVEN 1 EACH MISC MISCELLANE PRN (20:54)
[2017-02-22 21:00] LABS: Troponin I <0.012 ng/mL (0.000-0.034)
[2017-02-22 21:22] LABS: Amphetamine Screen,Urine Not Detected (NotDetected); Barbiturate Screen,Urine Not Detected (NotDetected); Benzodiazepines Screen,Urine Detected (NotDetected); Cocaine Screen,Urine Not Detected (NotDetected); Methadone Screen, Urine Not Detected (NotDetected); Opiate Screen,Urine Detected (NotDetected); Oxycodone Screen, Urine Detected (NotDetected); Phencyclidine Screen,Urine Not Detected (NotDetected); Tricyclic Antidepressant,Urine Not Detected (NotDetected); Urn Cannabinoid Scrn Not Detected (NotDetected)
[2017-02-22] MEDS ORDERED: cefTRIAXone IN SWFI 1,000 MG/10 ML SYRINGE IVP STA (21:23)
--- NOTE | 2017-02-22 21:37 | US ---
EXAMINATION TYPE: US venous doppler duplex LE RT DATE OF EXAM: 02/22/2017 9:31 PM COMPARISON: NONE CLINICAL HISTORY: Pain. Right leg pain SIDE PERFORMED: Right TECHNIQUE: The lower extremity deep venous system is examined utilizing real time linear array sonog maddy with graded compression, doppler sonography and color-flow sonography. VESSELS IMAGED: External Iliac Vein (EIV) Common Femoral Vein Deep Femoral Vein Greater Saphenous Vein * Femoral Vein Popliteal Vein Small Saphenous Vein * Proximal Calf Veins (* superficial vessels) Right Leg: Negative for DVT No evidence of DVT right leg. IMPRESSION: No evidence of deep venous thrombosis in the right leg.
[2017-02-22] MEDS ORDERED: SODIUM CHLORIDE 0.9% 1,000 ML IV ONE (21:57)
--- NOTE | 2017-02-22 22:08 | CT ---
EXAMINATION TYPE: CT angio chest DATE OF EXAM: 02/22/2017 9:53 PM COMPARISON: NONE HISTORY: Chest pain, SOB x3 days. Elevated D-Dimer. CT DLP: 118.6 mGycm Automated exposure control for dose reduction was used. CONTRAST: CTA scan of the thorax is performed with IV Contrast, patient injected with 70 mL of Omnipaque 350, p ulmonary embolism protocol. There are 3-D post processed images.. FINDINGS: There are multiple bilateral pulmonary somewhat nodular infiltrates. These measure up to 3 cm. These areas have relatively low density and are consistent with airspace disease. There is some cavitation of one of the lesions in the superior segment of the right lower lobe. I see no filling defects in the pulmonary arteries. There is no mediastinal adenopathy. There are rig ht bronchial lymph nodes that measure up to 1 cm. There is no evidence of aortic aneurysm or dissecti on. Bony structures appear intact. IMPRESSION: NO EVIDENCE OF PULMONARY EMBOLISM. MULTIPLE BILATERAL PULMONARY INFILTRATES ARE DISCRETE AND SHOW FEA TURES OF CAVITATION. I WOULD CONSIDER POSSIBILITIES OF SEPTIC EMBOLI, AUTOIMMUNE LUNG DISEASE. CLINIC AL CORRELATION IS RECOMMENDED.
[2017-02-22] MEDS ORDERED: VANCOMYCIN IV PER PHARMACY 1 EACH MISC MISCELLANE PRN (22:10)
[2017-02-22] MEDS ORDERED: PIPERACILLIN-TAZOBACTAM 3.375 GM in DEXTROSE/WATER 1 50ML.BAG IVPB STA (22:10)
[2017-02-22] MEDS ORDERED: NALOXONE 0.4 MG/ML 1 ML VIAL IV PRN (22:24)
[2017-02-22] MEDS: D5-0.9% NACL WITH KCL 20 MEQ/L 1,000 ML IV SCH (22:34)
[2017-02-22] MEDS ORDERED: THIAMINE 100 MG/ML 2 ML VIAL IM STA (22:59)
[2017-02-22] MEDS ORDERED: LORazepam 2 MG/ML INJ IV PRN (22:59)
[2017-02-22 23:05] LABS: Glucose,Whole Blood 116 mg/dL (75-99)
[2017-02-22] MEDS: THIAMINE 100 MG TAB PO SCH (23:43)
[2017-02-23 00:01] VITALS: BMI 23.1
[2017-02-23] MEDS: MORPHINE SULFATE 2 MG/ML SYRINGE IVP PRN ×7 (00:39→21:18)
[2017-02-23] MEDS ORDERED: VANCOMYCIN 1,000 MG in SODIUM CHLORIDE 0.9% 250 ML IVPB SCH (03:00)
[2017-02-23] MEDS: LORazepam 2 MG/ML INJ IV PRN (05:01)
[2017-02-23 05:32] LABS: HCT 35.6 % (34.0-46.0); HGB 12.1 gm/dL (11.4-16.0); MCHC 33.9 g/dL (31.0-37.0); MCV 82.5 fL (80.0-100.0); Mean Platelet Volume 10.9; Platelet Count 103 k/uL (150-450); RBC 4.32 m/uL (3.80-5.40); RDW 13.4 % (11.5-15.5)
[2017-02-23 06:05] LABS: Band Neutrophils % 5 %; Neutrophils % (M) 74 %; Nucleated Red Blood Cells 0 /100 WBC (0-0); Total Cells Counted 100
[2017-02-23 06:06] LABS: ALT 105 U/L (9-52); AST 209 U/L (14-36); Albumin 2.4 g/dL (3.5-5.0); Alkaline Phosphatase 155 U/L (38-126); Anion Gap 7 mmol/L; Blood Urea Nitrogen 16 mg/dL (7-17); Calcium 7.8 mg/dL (8.4-10.2); Carbon Dioxide 28 mmol/L (22-30); Chloride 106 mmol/L (98-107); Glucose 109 mg/dL (74-99); Magnesium 2.3 mg/dL (1.6-2.3); Phosphorus 2.3 mg/dL (2.5-4.5); Potassium 4.2 mmol/L (3.5-5.1); Reactive Lymphocytes Present; Sodium 141 mmol/L (137-145); Total Protein 5.5 g/dL (6.3-8.2); Toxic Vacuolation Present
[2017-02-23] MEDS ORDERED: IBUPROFEN 600 MG TAB PO SCH (06:19)
[2017-02-23] MEDS: IBUPROFEN 600 MG TAB PO PRN ×2 (06:49→15:46)
[2017-02-23] MEDS ORDERED: POTASSIUM PHOSPHATE 10 MMOL in SODIUM CHLORIDE 0.9% 250 ML IV ONE (07:00)
[2017-02-23] MEDS ORDERED: IPRATROPIUM-ALBUTEROL 3 ML NEB INHALATION SCH (08:00)
--- NOTE | 2017-02-23 08:09 | XR ---
EXAMINATION TYPE: XR chest 1V DATE OF EXAM: 02/23/2017 COMPARISON: 02/22/2017 HISTORY: 31 year-old female shortness of breath TECHNIQUE: Single frontal view of the chest is obtained. FINDINGS: Heart normal size. Patient obliqued towards the right with volume loss at the right base. Subtle patc hy bibasilar infiltrates relatively similar to prior. Cavitation described on recent CT are not as we ll appreciated radiographically. IMPRESSION: Subtle bibasilar infiltrates persist. Cavitation described on recent CT not as well appreciated radio graphically.
--- NOTE | 2017-02-23 09:55 | ECHOF ---
Referral Reason:Concern for endocarditis MEASUREMENTS -------- HEIGHT: 157.5 cm WEIGHT: 57.2 kg BP: 101/59 IVSd: 1.3 cm (0.6 - 1.1) LVIDd: 3.6 cm (3.9 - 5.3) LVPWd: 0.8 cm (0.6 - 1.1) IVSs: 1.7 cm LVIDs: 2.1 cm LVPWs: 1.9 cm Ao Diam: 2.9 cm (2.0 - 3.7) AV Cusp: 2.1 cm (1.5 - 2.6) LA Diam: 2.8 cm (2.7 - 3.8) MV EXCURSION: 22.777 mm (> 18.000) MV EF SLOPE: 162 mm/s (70 - 150) EPSS: 0.6 cm MV E [place]: 1.22 m/s MV DecT: 178 ms MV A [place]: 1.34 m/s MV E/A Ratio: 0.91 RAP: 5.00 mmHg RVSP: 57.92 mmHg FINDINGS -------- Resting tachycardia (HR>100bpm). This was a technically good study. The left ventricular size is normal. There is borderline concentric left ventricular hypertrophy. Overall left ventricular systolic function is normal with, an EF between 55 - 60 %. The right ventricle is normal in size and function. The left atrium is normal in size. The right atrium is normal in size. The aortic valve is trileaflet, and appears structurally normal. No aortic stenosis or regurgitation. There is trace mitral regurgitation. Moderate tricuspid regurgitation present. There is moderate pulmonary hypertension. The right nemesio tricular systolic pressure, as measured by Doppler, is 57.92mmHg. Vegetation seen on the tricuspid valve Pulmonic valve appears structurally normal. The aortic root size is normal. Normal inferior vena cava with normal inspiratory collapse consistent with estimated right atrial pre ssure of 5 mmHg. There is a trivial pericardial effusion present. CONCLUSIONS -------- 1. Resting tachycardia (HR>100bpm). 2. This was a technically good study. 3. The left ventricular size is normal. 4. There is borderline concentric left ventricular hypertrophy. 5. Overall left ventricular systolic function is normal with, an EF between 55 - 60 %. 6. The right ventricle is normal in size and function. 7. The left atrium is normal in size. 8. The right atrium is normal in size. 9. Moderate tricuspid regurgitation present. 10. There is moderate pulmonary hypertension. 11. The right ventricular systolic pressure, as measured by Doppler, is 57.92mmHg. 12. Vegetation seen on the tricuspid valve 13. Pulmonic valve appears structurally normal. 14. The aortic root size is normal. 15. Normal inferior vena cava with normal inspiratory collapse consistent with estimated right atrial pressure of 5 mmHg. 16. There is a trivial pericardial effusion present. SENIOR GAME ADVISOR: Cleo Monroe RDCS
[2017-02-23] MEDS: ENOXAPARIN 40 MG/0.4 ML SYRINGE SQ SCH (10:01)
[2017-02-23] MEDS: PANTOPRAZOLE 40 MG TABLET PO SCH (10:02)
[2017-02-23] MEDS: PIPERACILLIN-TAZOBACTAM 3.375 GM in DEXTROSE/WATER 1 50ML.BAG IVPB SCH ×2 (10:02→16:18)
--- NOTE | 2017-02-23 10:06 | P.CONS ---
History of Present Illness - Reason for Consult Consult date: 02/23/17 Septic pulmonary emboli, concern for endocarditis - History of Present Illness This is a 31-year-old female seen in the intensive care unit. Patient presents with chest pain that has been going on for 3 days with deep inspiration, cough, nasal congestion, sore throat and fever and chills. She has not had much appetite and has a weight loss of 15-20 pounds over the past one month Patient presented to [facility] with temperature 102.9, tachycardia, pulse ox of 95%. D-dimer was elevated at 2.14. CTA of the chest showed no pulmonary embolism but multiple bilateral pulmonary infiltrates that are discrete that show features of cavitation with differential of septic emboli, autoimmune lung disease. Ultrasound of the lower x-rays was negative for DVT. Sodium was 126 potassium 3.1 chloride 88. White count was 10.8. Total bilirubin was normal at 1.2 and other liver function tests were all elevated. Urinalysis was cloudy, protein 2+, blood small, leukoesterase trace, WBC is 11, bacteria many. Influenza testing was negative. HCG was negative. Urine drug screen was positive for opiates, oxycodone and benzodiazepines. Patient has hepatitis testing in process. Patient was started in the ER on Rocephin and Zosyn and admitted to the ICU. Pulmonary medicine and cardiology on consult. Patient is currently on Zosyn and vancomycin. Patient denies any previous infections secondary to her IV drug abuse. Patient is only used her arms for injection. She has an initial blood culture gram-positive cocci in clusters and urine culture in process. Repeat blood culture has been obtained. Chest x-ray shows mild right lower lobe pneumonia. She gives history that she has been IV drug abuser with heroin for 2 years and uses every day. She denies any other drug use. Patient is also sexually active without using protection. She denies history of HIV and denies being tested for HIV in the past. Patient has 2 children which she does not have custody. One is with her sister and one with the child's father. Patient becomes very tearful when discussing her children. She recognizes that she needs to stop drug abuse and she does wish to have custody of her children one day. Review of Systems All systems: negative Constitutional: Reports anorexia, Reports chills, Reports fatigue, Reports fever , Reports lethargy, Reports malaise, Reports poor appetite, Reports weakness Eyes: denies blurred vision, denies pain Ears, nose, mouth and throat: Reports nasal congestion, Reports sore throat, Denies dental pain, Denies headache, Denies mouth pain Cardiovascular: Reports chest pain, Denies edema, Denies leg edema, Denies lightheadedness, Denies shortness of breath, Denies syncope Respiratory: Reports cough, Denies cough with sputum, Denies dyspnea, Denies excessive sputum, Denies hemoptysis, Denies home oxygen Gastrointestinal: Reports loss of appetite, Denies abdominal pain, Denies diarrhea, Denies nausea, Denies vomiting Genitourinary: Denies dysuria, Denies hematuria Musculoskeletal: Denies myalgias Integumentary: Denies pruritus, Denies rash Neurological: Denies numbness, Denies weakness Psychiatric: Denies anxiety, Denies depression Endocrine: Denies fatigue, Denies weight change Past Medical History Additional Past Medical History / Comment(s): Tacho tunnel, colitis, UTI History of Any Multi-Drug Resistant Organisms: None Reported Past Surgical History: No Surgical Hx Reported Past Anesthesia/Blood Transfusion Reactions: No Reported Reaction Smoking Status: Current every day smoker Past Alcohol Use History: None Reported Past Drug Use History: Heroin Additional Drug Use History / Comment(s): She gives history that she has been IV drug abuser with heroin for 2 years and uses every day. She denies any other drug use. Patient is also sexually active without using protection. She denies history of HIV and denies being tested for HIV in the past. Patient has 2 children which she does not have custody. One is with her sister and one with the child's father. - Past Family History Father Family Medical History: No Reported History Sister(s) Family Medical History: No Reported History Medications and Allergies Home Medications Medication Instructions Recorded Confirmed Type No Known Home Medications [No 10/08/16 02/22/17 History Known Home Medications] Allergies Allergy/AdvReac Type Severity Reaction Status Date / Time No Known Allergies Allergy Verified 02/22/17 20:55 Physical Exam Vitals: Vital Signs Temp Pulse Pulse Resp BP BP Pulse Ox 02/23/17 09:00 101 H 21 112/61 94 L 02/23/17 08:00 98.7 F 115 H 21 98/49 91 L 02/23/17 07:00 124 H 16 111/70 95 02/23/17 06:00 123 H 28 H 101/59 94 L 02/23/17 05:00 124 H 33 H 97/64 96 02/23/17 04:00 99.3 F 108 H 27 H 98/61 98 02/23/17 03:00 106 H 27 H 96/59 96 02/23/17 02:00 108 H 16 95/59 97 02/23/17 01:45 16 02/23/17 01:00 101 H 19 96/58 02/23/17 00:00 101 H 18 88/61 98 02/22/17 23:02 97.9 F 105 H 02/22/17 22:44 98.2 F 105 H 14 110/61 98 02/22/17 22:00 104 H 22 118/54 98 02/22/17 21:57 111 H 22 110/64 98 02/22/17 21:29 100.9 F H 111 H 22 110/61 97 02/22/17 21:13 22 02/22/17 21:00 126 H 20 109/55 98 02/22/17 20:52 114 H 20 110/57 97 02/22/17 19:12 102.9 F H 130 H 18 110/60 95 Intake and Output 02/22/17 02/23/17 02/23/17 22:59 06:59 14:59 Intake Total 1005 225 Output Total 1350 350 Balance -345 -125 Intake: IV 525 225 D5-0.9% NaCl with KCl 20 525 225 Meq/l 1,000 ml @ 75 mls/ hr IV .[id number] [facility] Rx#: [id number] Oral 480 Output: Urine 1350 350 Other: Weight 57.4 kg Gen: This is a 31-year-old female. She is sitting up in the intensive care unit. She appears to be in no acute respiratory distress. Patient does appear to be weak. She is tearful during part of the evaluation. HEENT: Head is atraumatic, normocephalic. Pupils equal, round. Sclerae is anicteric. Conjunctiva pink. Mucous membranes of the mouth are dry. No thrush noted. NECK: Supple. No JVD. No lymphadenopathy. No thyromegaly. LUNGS: Scattered rhonchi. No intercostal retractions. HEART: Regular rate and rhythm. Systolic murmur. ABDOMEN: Soft. Bowel sounds are present. No masses. Mild generalized tenderness. EXTREMITIES: No pedal edema. No calf tenderness. Dorsalis pedis +2 bilaterally. Multiple puncture sites noted to the bilateral arms with no signs of infection. NEUROLOGICAL: Patient is awake, alert and oriented x3. Cranial nerves 2 through 12 are grossly intact. Results Results: Laboratory Results WBC 10.0 k/uL (3.8-10.6) 02/23/17 04:48 RBC 4.32 m/uL (3.80-5.40) 02/23/17 04:48 Hgb 12.1 gm/dL (11.4-16.0) 02/23/17 04:48 Hct 35.6 % (34.0-46.0) 02/23/17 04:48 MCV 82.5 fL (80.0-100.0) 02/23/17 04:48 MCH 28.0 pg (25.0-35.0) 02/23/17 04:48 MCHC 33.9 g/dL (31.0-37.0) 02/23/17 04:48 RDW 13.4 % (11.5-15.5) 02/23/17 04:48 Plt Count 103 k/uL (150-450) L 02/23/17 04:48 Neutrophils % 85 % 02/22/17 20:16 Neutrophils % (Manual) 74 % 02/23/17 04:48 Band Neutrophils % 5 % 02/23/17 04:48 Lymphocytes % 7 % 02/22/17 20:16 Lymphocytes % (Manual) 9 % 02/23/17 04:48 Monocytes % 4 % 02/22/17 20:16 Monocytes % (Manual) 12 % 02/23/17 04:48 Eosinophils % 1 % 02/22/17 20:16 Basophils % 0 % 02/22/17 20:16 Neutrophils # 9.2 k/uL (1.3-7.7) H 02/22/17 20:16 Neutrophils # (Manual) 7.90 k/uL (1.3-7.7) H 02/23/17 04:48 Lymphocytes # 0.7 k/uL (1.0-4.8) L 02/22/17 20:16 Lymphocytes # (Manual) 0.90 k/uL (1.0-4.8) L 02/23/17 04:48 Monocytes # 0.4 k/uL (0-1.0) 02/22/17 20:16 Monocytes # (Manual) 1.20 k/uL (0-1.0) H 02/23/17 04:48 Eosinophils # 0.1 k/uL (0-0.7) 02/22/17 20:16 Basophils # 0.0 k/uL (0-0.2) 02/22/17 20:16 Nucleated RBCs 0 /100 WBC (0-0) 02/23/17 04:48 Manual Slide Review Performed 02/23/17 04:48 Reactive Lymphocytes Present 02/23/17 04:48 Toxic Vacuolation Present 02/23/17 04:48 PT 10.8 sec (9.0-12.0) 02/22/17 20:16 INR 1.1 (<1.2) 02/22/17 20:16 APTT 28.4 sec (22.0-30.0) 02/22/17 20:16 D-Dimer 2.14 mg/L FEU (<0.60) H 02/22/17 20:16 Sodium 141 mmol/L (137-145) 02/23/17 04:48 Potassium 4.2 mmol/L (3.5-5.1) 02/23/17 04:48 Chloride 106 mmol/L (98-107) 02/23/17 04:48 Carbon Dioxide 28 mmol/L (22-30) 02/23/17 04:48 Anion Gap 7 mmol/L 02/23/17 04:48 BUN 16 mg/dL (7-17) 02/23/17 04:48 Creatinine 0.60 mg/dL (0.52-1.04) 02/23/17 04:48 Est GFR (MDRD) Af Amer >60 (>60 ml/min/1.73 sqM) 02/23/17 04:48 Est GFR (MDRD) Non-Af >60 (>60 ml/min/1.73 sqM) 02/23/17 04:48 Glucose 109 mg/dL (74-99) H 02/23/17 04:48 POC Glucose (mg/dL) 116 mg/dL (75-99) H 02/22/17 23:03 POC Glu Product Marketing Manager ID Adarsh Hernandez 02/22/17 23:03 Calcium 7.8 mg/dL (8.4-10.2) L 02/23/17 04:48 Phosphorus 2.3 mg/dL (2.5-4.5) L 02/23/17 04:48 Magnesium 2.3 mg/dL (1.6-2.3) 02/23/17 04:48 Total Bilirubin 1.0 mg/dL (0.2-1.3) 02/23/17 04:48 AST 209 U/L (14-36) H 02/23/17 04:48 ALT 105 U/L (9-52) H 02/23/17 04:48 Alkaline Phosphatase 155 U/L (38-126) H 02/23/17 04:48 Total Creatine Kinase 358 U/L (30-135) H 02/22/17 20:16 CK-MB (CK-2) 1.0 ng/mL (0.0-2.4) 02/22/17 20:16 CK-MB (CK-2) Rel Index 0.3 02/22/17 20:16 Troponin I <0.012 ng/mL (0.000-0.034) 02/22/17 20:16 Total Protein 5.5 g/dL (6.3-8.2) L 02/23/17 04:48 Albumin 2.4 g/dL (3.5-5.0) L 02/23/17 04:48 Lipase 33 U/L (23-300) 02/22/17 20:16 Urine Color Yellow 02/22/17 20:16 Urine Appearance Cloudy (Clear) H 02/22/17 20:16 Urine pH 6.0 (5.0-8.0) 02/22/17 20:16 Ur Specific Wilson 1.015 (1.001-1.035) 02/22/17 20:16 Urine Protein 2+ (Negative) H 02/22/17 20:16 Urine Glucose (UA) Negative (Negative) 02/22/17 20:16 Urine Ketones Negative (Negative) 02/22/17 20:16 Urine Blood Small (Negative) H 02/22/17 20:16 Urine Nitrite Negative (Negative) 02/22/17 20:16 Urine Bilirubin Negative (Negative) 02/22/17 20:16 Urine Urobilinogen 8.0 mg/dL (<2.0) 02/22/17 20:16 Ur Leukocyte Esterase Trace (Negative) H 02/22/17 20:16 Urine RBC 1 /hpf (0-5) 02/22/17 20:16 Urine WBC 11 /hpf (0-5) H 02/22/17 20:16 Ur Squamous Epith Cells 2 /hpf (0-4) 02/22/17 20:16 Urine Bacteria Many /hpf (None) H 02/22/17 20:16 Hyaline Casts 32 /lpf (0-2) H 02/22/17 20:16 Urine Mucus Rare /hpf (None) H 02/22/17 20:16 Urine HCG, Qual Not Detected (Not Detectd) 02/22/17 20:16 Urine Opiates Screen Detected (NotDetected) H 02/22/17 20:16 Ur Oxycodone Screen Detected (NotDetected) H 02/22/17 20:16 Urine Methadone Screen Not Detected (NotDetected) 02/22/17 20:16 Ur Propoxyphene Screen Not Detected (NotDetected) 02/22/17 20:16 Ur Barbiturates Screen Not Detected (NotDetected) 02/22/17 20:16 U Tricyclic Antidepress Not Detected (NotDetected) 02/22/17 20:16 Ur Phencyclidine Scrn Not Detected (NotDetected) 02/22/17 20:16 Ur Amphetamines Screen Not Detected (NotDetected) 02/22/17 20:16 U Methamphetamines Scrn Not Detected (NotDetected) 02/22/17 20:16 U Benzodiazepines Scrn Detected (NotDetected) H 02/22/17 20:16 Urine Cocaine Screen Not Detected (NotDetected) 02/22/17 20:16 U Marijuana (THC) Screen Not Detected (NotDetected) 02/22/17 20:16 Influenza Type A RNA Not Detected (Not Detectd) 02/22/17 20:16 Influenza Type B (PCR) Not Detected (Not Detectd) 02/22/17 20:16 CBC & Chem 7: 02/23/17 04:48 01/19/18 04:48 Labs: Abnormal Lab Results - Last 24 Hours (Table) 02/22/17 02/22/17 02/22/17 Range/Units 20:16 20:16 20:16 WBC 10.8 H (3.8-10.6) k/uL Hgb 11.3 L (11.4-16.0) gm/dL Hct 32.7 L (34.0-46.0) % Plt Count 113 L (150-450) k/uL Neutrophils # 9.2 H (1.3-7.7) k/uL Neutrophils # (Manual) (1.3-7.7) k/uL Lymphocytes # 0.7 L (1.0-4.8) k/uL Lymphocytes # (Manual) (1.0-4.8) k/uL Monocytes # (Manual) (0-1.0) k/uL D-Dimer (<0.60) mg/L FEU Sodium 126 L (137-145) mmol/L Potassium 3.1 L (3.5-5.1) mmol/L Chloride 88 L (98-107) mmol/L Carbon Dioxide 31 H (22-30) mmol/L BUN 20 H (7-17) mg/dL Glucose (74-99) mg/dL POC Glucose (mg/dL) (75-99) mg/dL Calcium 8.0 L (8.4-10.2) mg/dL Phosphorus (2.5-4.5) mg/dL AST 119 H (14-36) U/L ALT 89 H (9-52) U/L Alkaline Phosphatase 146 H (38-126) U/L Total Creatine Kinase 358 H (30-135) U/L Total Protein 6.0 L (6.3-8.2) g/dL Albumin 2.9 L (3.5-5.0) g/dL Urine Appearance (Clear) Urine Protein (Negative) Urine Blood (Negative) Ur Leukocyte Esterase (Negative) Urine WBC (0-5) /hpf Urine Bacteria (None) /hpf Hyaline Casts (0-2) /lpf Urine Mucus (None) /hpf Urine Opiates Screen (NotDetected) Ur Oxycodone Screen (NotDetected) U Benzodiazepines Scrn (NotDetected) 02/22/17 02/22/17 02/22/17 Range/Units 20:16 20:16 20:16 WBC (3.8-10.6) k/uL Hgb (11.4-16.0) gm/dL Hct (34.0-46.0) % Plt Count (150-450) k/uL Neutrophils # (1.3-7.7) k/uL Neutrophils # (Manual) (1.3-7.7) k/uL Lymphocytes # (1.0-4.8) k/uL Lymphocytes # (Manual) (1.0-4.8) k/uL Monocytes # (Manual) (0-1.0) k/uL D-Dimer 2.14 H (<0.60) mg/L FEU Sodium (137-145) mmol/L Potassium (3.5-5.1) mmol/L Chloride (98-107) mmol/L Carbon Dioxide (22-30) mmol/L BUN (7-17) mg/dL Glucose (74-99) mg/dL POC Glucose (mg/dL) (75-99) mg/dL Calcium (8.4-10.2) mg/dL Phosphorus (2.5-4.5) mg/dL AST (14-36) U/L ALT (9-52) U/L Alkaline Phosphatase (38-126) U/L Total Creatine Kinase (30-135) U/L Total Protein (6.3-8.2) g/dL Albumin (3.5-5.0) g/dL Urine Appearance Cloudy H (Clear) Urine Protein 2+ H (Negative) Urine Blood Small H (Negative) Ur Leukocyte Esterase Trace H (Negative) Urine WBC 11 H (0-5) /hpf Urine Bacteria Many H (None) /hpf Hyaline Casts 32 H (0-2) /lpf Urine Mucus Rare H (None) /hpf Urine Opiates Screen Detected H (NotDetected) Ur Oxycodone Screen Detected H (NotDetected) U Benzodiazepines Scrn Detected H (NotDetected) 02/22/17 02/23/17 02/23/17 Range/Units 23:03 04:48 04:48 WBC (3.8-10.6) k/uL Hgb (11.4-16.0) gm/dL Hct (34.0-46.0) % Plt Count 103 L (150-450) k/uL Neutrophils # (1.3-7.7) k/uL Neutrophils # (Manual) 7.90 H (1.3-7.7) k/uL Lymphocytes # (1.0-4.8) k/uL Lymphocytes # (Manual) 0.90 L (1.0-4.8) k/uL Monocytes # (Manual) 1.20 H (0-1.0) k/uL D-Dimer (<0.60) mg/L FEU Sodium (137-145) mmol/L Potassium (3.5-5.1) mmol/L Chloride (98-107) mmol/L Carbon Dioxide (22-30) mmol/L BUN (7-17) mg/dL Glucose 109 H (74-99) mg/dL POC Glucose (mg/dL) 116 H (75-99) mg/dL Calcium 7.8 L (8.4-10.2) mg/dL Phosphorus 2.3 L (2.5-4.5) mg/dL AST 209 H (14-36) U/L ALT 105 H (9-52) U/L Alkaline Phosphatase 155 H (38-126) U/L Total Creatine Kinase (30-135) U/L Total Protein 5.5 L (6.3-8.2) g/dL Albumin 2.4 L (3.5-5.0) g/dL Urine Appearance (Clear) Urine Protein (Negative) Urine Blood (Negative) Ur Leukocyte Esterase (Negative) Urine WBC (0-5) /hpf Urine Bacteria (None) /hpf Hyaline Casts (0-2) /lpf Urine Mucus (None) /hpf Urine Opiates Screen (NotDetected) Ur Oxycodone Screen (NotDetected) U Benzodiazepines Scrn (NotDetected) Microbiology - Last 24 Hours (Table) 02/22/17 20:10 Blood Culture Gram Stain - Preliminary Blood 02/22/17 20:10 Blood Culture - Final Blood 02/22/17 20:16 Urine Culture - Preliminary Urine,Voided Assessment and Plan Plan: This is a 31-year-old female who presented to the hospital with sepsis , septic pulmonary emboli, probable endocarditis. Patient has been admitted into the intensive care unit and consults are in place with coronary medicine and cardiology. Patient is plan for TONYA today. She is currently on IV antibiotics the form of Zosyn and vancomycin. Repeat blood culture will be requested as first is showing gram-positive cocci. Acute hepatitis testing is in process and HIV testing will be added. Continue supportive care. Further recommendations as patient progresses. The above dictated assessment and findings were discussed with Dr. Aleman. The impression and plan of care have been directed as dictated. Corina Hdz nurse practitioner acting as scribe for Dr. Aleman.
--- NOTE | 2017-02-23 11:11 | P.CNPUL ---
History of Present Illness Consult date: 02/23/17 Requesting physician: Geovani Carter Reason for consult: chest pain Chief complaint: Chest pain. Shortness of breath History of present illness: This is a pleasant 31-year-old female patient who follows with Dr. Fountain as her primary care physician. She has a history of depression. She also has a history of previous benzodiazepine overdose that was claimed to have been accidental and the patient had left AGAINST MEDICAL ADVICE back in October 2016. She also has a history of heroin abuse and had started not feeling well this past weekend. She ended up sustaining a fall at home and presented to [facility] ER and was treated with right knee brace. At that time she was also told she had a urinary tract infection but was not given any medications for home. She stated she was detoxing herself and then 2 nights ago she developed intermittent chest pain that progressed and became much worse and she presented here yesterday to the emergency room for the same. She was complaining of pain with inspiration. This was mostly substernal discomfort. She had no cough, congestion. Doppler of the right lower extremity was negative. A CT angiogram revealed no evidence of pulmonary embolism however there are multiple bilateral pulmonary infiltrates with features of cavitation and suspected septic emboli. Echocardiogram reveals vegetation on the tricuspid valve. There is moderate tricuspid regurgitation and moderate pulmonary hypertension. RVSP 57.9 mmHg. Preliminary blood cultures revealed gram-positive cocci, urine culture in progress. No leukocytosis. Electrolytes corrected. Liver enzymes remain elevated AST 209, ALT 105, alk phos 155 the patient denied any other medications however her urine drug screen is positive for opiates, oxycodone and benzodiazepines. Influenza screen is negative. She is seen today in consultation in the intensive care unit. She is awake and alert in no acute distress. She is maintaining good O2 saturations in the 90s on room air. She has an IV of D5 0.9 with 20 KCl at 75 MLS per hour. She is awake and alert. She states her chest discomfort is about the same today as compared to yesterday. Still uncomfortable with inhalation. She has been afebrile, slightly tachycardic, maintaining mean arterial blood pressures in the 60s and 70s. She remains on the CIWA protocol. She's been initiated on vancomycin and Zosyn. Review of Systems 14 point review of system was conducted. All negative other than as mentioned in the HPI. Past Medical History Additional Past Medical History / Comment(s): Tacho tunnel, colitis, UTI and heroin abuse History of Any Multi-Drug Resistant Organisms: None Reported Past Surgical History: No Surgical Hx Reported Past Anesthesia/Blood Transfusion Reactions: No Reported Reaction Smoking Status: Current every day smoker Past Alcohol Use History: None Reported Past Drug Use History: Heroin Additional Drug Use History / Comment(s): She gives history that she has been IV drug abuser with heroin for 2 years and uses every day. She denies any other drug use. Patient is also sexually active without using protection. She denies history of HIV and denies being tested for HIV in the past. Patient has 2 children which she does not have custody. One is with her sister and one with the child's father. - Past Family History Father Family Medical History: No Reported History Sister(s) Family Medical History: No Reported History Medications and Allergies Home Medications Medication Instructions Recorded Confirmed Type No Known Home Medications [No 10/08/16 02/22/17 History Known Home Medications] Allergies Allergy/AdvReac Type Severity Reaction Status Date / Time No Known Allergies Allergy Verified 02/22/17 20:55 Physical Exam Vitals: Vital Signs Temp Pulse Pulse Resp BP BP Pulse Ox 02/23/17 10:00 93 16 87/62 97 02/23/17 09:00 101 H 21 112/61 94 L 02/23/17 08:00 98.7 F 115 H 21 98/49 91 L 02/23/17 07:00 124 H 16 111/70 95 02/23/17 06:00 123 H 28 H 101/59 94 L 02/23/17 05:00 124 H 33 H 97/64 96 02/23/17 04:00 99.3 F 108 H 27 H 98/61 98 02/23/17 03:00 106 H 27 H 96/59 96 02/23/17 02:00 108 H 16 95/59 97 02/23/17 01:45 16 02/23/17 01:00 101 H 19 96/58 02/23/17 00:00 101 H 18 88/61 98 02/22/17 23:02 97.9 F 105 H 02/22/17 22:44 98.2 F 105 H 14 110/61 98 02/22/17 22:00 104 H 22 118/54 98 02/22/17 21:57 111 H 22 110/64 98 02/22/17 21:29 100.9 F H 111 H 22 110/61 97 02/22/17 21:13 22 02/22/17 21:00 126 H 20 109/55 98 02/22/17 20:52 114 H 20 110/57 97 02/22/17 19:12 102.9 F H 130 H 18 110/60 95 Intake and Output 02/22/17 02/23/17 02/23/17 22:59 06:59 14:59 Intake Total 1005 300 Output Total 1350 350 Balance -345 -50 Intake: IV 525 300 D5-0.9% NaCl with KCl 20 525 300 Meq/l 1,000 ml @ 75 mls/ hr IV .[id number] [facility] Rx#: [id number] Oral 480 Output: Urine 1350 350 Other: Weight 57.4 kg GENERAL EXAM: Alert, active, comfortable in no apparent distress. HEAD: Normocephalic. EYES: Normal reaction of pupils, equal size. NOSE: Clear with pink turbinates. THROAT: No erythema or exudates. NECK: No masses, no JVD. CHEST: No chest wall deformity. LUNGS: Equal air entry with no crackles, wheeze, rhonchi or dullness. CVS: S1 and S2 normal with audible murmur, regular rhythm. ABDOMEN: No hepatosplenomegaly, normal bowel sounds, no guarding or rigidity. SPINE: No scoliosis or deformity SKIN: No rashes, evidence of track espitia in the upper extremities. CENTRAL NERVOUS SYSTEM: No focal deficits, tone is normal in all 4 extremities. EXTREMITIES: There is no peripheral edema. No clubbing, no cyanosis. Peripheral pulses are intact. Results - Laboratory Findings CBC and BMP: 02/23/17 04:48 02/23/17 04:48 PT/INR, D-dimer PT 10.8 sec (9.0-12.0) 02/22/17 20:16 INR 1.1 (<1.2) 02/22/17 20:16 D-Dimer 2.14 mg/L FEU (<0.60) H 02/22/17 20:16 Abnormal lab findings: Abnormal Labs 02/22/17 02/22/17 02/22/17 20:16 20:16 20:16 WBC 10.8 H Hgb 11.3 L Hct 32.7 L Plt Count 113 L Neutrophils # 9.2 H Neutrophils # (Manual) Lymphocytes # 0.7 L Lymphocytes # (Manual) Monocytes # (Manual) D-Dimer Sodium 126 L Potassium 3.1 L Chloride 88 L Carbon Dioxide 31 H BUN 20 H Glucose POC Glucose (mg/dL) Calcium 8.0 L Phosphorus AST 119 H ALT 89 H Alkaline Phosphatase 146 H Total Creatine Kinase 358 H Total Protein 6.0 L Albumin 2.9 L Urine Appearance Urine Protein Urine Blood Ur Leukocyte Esterase Urine WBC Urine Bacteria Hyaline Casts Urine Mucus Urine Opiates Screen Ur Oxycodone Screen U Benzodiazepines Scrn 02/22/17 02/22/17 02/22/17 20:16 20:16 20:16 WBC Hgb Hct Plt Count Neutrophils # Neutrophils # (Manual) Lymphocytes # Lymphocytes # (Manual) Monocytes # (Manual) D-Dimer 2.14 H Sodium Potassium Chloride Carbon Dioxide BUN Glucose POC Glucose (mg/dL) Calcium Phosphorus AST ALT Alkaline Phosphatase Total Creatine Kinase Total Protein Albumin Urine Appearance Cloudy H Urine Protein 2+ H Urine Blood Small H Ur Leukocyte Esterase Trace H Urine WBC 11 H Urine Bacteria Many H Hyaline Casts 32 H Urine Mucus Rare H Urine Opiates Screen Detected H Ur Oxycodone Screen Detected H U Benzodiazepines Scrn Detected H 02/22/17 02/23/17 02/23/17 23:03 04:48 04:48 WBC Hgb Hct Plt Count 103 L Neutrophils # Neutrophils # (Manual) 7.90 H Lymphocytes # Lymphocytes # (Manual) 0.90 L Monocytes # (Manual) 1.20 H D-Dimer Sodium Potassium Chloride Carbon Dioxide BUN Glucose 109 H POC Glucose (mg/dL) 116 H Calcium 7.8 L Phosphorus 2.3 L AST 209 H ALT 105 H Alkaline Phosphatase 155 H Total Creatine Kinase Total Protein 5.5 L Albumin 2.4 L Urine Appearance Urine Protein Urine Blood Ur Leukocyte Esterase Urine WBC Urine Bacteria Hyaline Casts Urine Mucus Urine Opiates Screen Ur Oxycodone Screen U Benzodiazepines Scrn - Diagnostic Findings Chest x-ray: image reviewed CT scan - chest: image reviewed Assessment and Plan Assessment: Impression: #1 Chest pain in a patient found to have septic pulmonary emboli secondary to vegetation of the tricuspid valve secondary to bacteremia secondary to IV heroin abuse. #2 Bacteremia of gram positive cocci #3 Urinary tract infection, ID and sensitivity pending. #4 Heroin abuse. #5 Previous history of benzodiazepine overdose. #6 Drug screen positive for benzodiazepines, oxycodone, opiates. #7 Elevated liver enzymes. #8 8 Chronic and ongoing tobacco dependence. #9 History of depression. Plan: The patient was seen and evaluated by Dr. Silva. Her chest x-ray, CT scan and labs were all reviewed. We will continue with the patient on vancomycin and Zosyn for now. Infectious diseases has been consulted. Cardiology is been consulted. No plans for TONYA, echocardiogram does reveal the tricuspid vegetation. We will continue to observe her closely here in the intensive care unit another 24 hours. Observe for withdrawal. We will continue to follow and make further recommendations based on her clinical status. Critical care time 40 minutes. I, the cosigning physician, performed a history & physical examination of the patient. Lungs sounds have coarse crackles in the bilateral posterior bases. Maintaining good O2 saturations in the 90s on room air. I discussed the assessment and plan of care with my nurse practitioner, Jannette Leyva. I attest to the above note as dictated by her. Time with Patient: Greater than 30
--- NOTE | 2017-02-23 11:18 | CONS ---
CONSULTATION Ms. Murray 31-year-old female with no prior cardiac history who presented with symptoms of chest discomfort and dyspnea going on for the last 3 days. The chest discomfort is respirophasic in pattern. On presentation to the emergency room, she was found to have evidence to suggest septic embolization to the lung. The patient has a history of heroin abuse for the last 2 years. She injects in her arms. Last use was on Sunday. She had no clear fever according to her. No chills. She denies any dizziness or palpitation. No syncope. She has no PND, orthopnea, or peripheral edema. She has no history of hypertension or diabetes. She is a smoker, but denies alcohol intake. She takes no medication at home. REVIEW OF SYSTEMS: RESPIRATORY SYSTEM: She had a cough, dyspnea on exertion. GI SYSTEM: No nausea. No vomiting. No GI bleeding. SYSTEM: No dysuria or hematuria. NERVOUS SYSTEM: No stroke or seizure. PHYSICAL EXAMINATION: She is a 31-year-old female, alert, oriented, in no apparent distress. Blood pressure 112/60 with the heart rate in the 90s. Temperature on presentation 102.9. HEAD: Normocephalic. EYES: Sclerae anicteric. NECK: Good carotid upstroke. No bruit. No jugular venous distention. LUNGS: Clear to auscultation. HEART: Regular rate and rhythm, S1, S2. No S3 with systolic murmur heard at the left lower sternal border. No diastolic murmur. ABDOMEN: Soft, nontender. Positive bowel sounds. No organomegaly. EXTREMITIES: No edema. Intact distal pulses. Needle track noted in the upper extremities. LAB DATA: Lab data revealed a white blood cell on admission of 10.8, 10.0 today, hemoglobin of 12.1. BUN and creatinine 16 and 0.6. Potassium 4.2. Her AST is 209, ALT of 105. Troponin less than 0.012. She has opiate, oxycodone, and benzodiazepine detected on her screen. Her echocardiogram revealed a preserved systolic function with vegetation involving the tricuspid valve with moderate pulmonary hypertension and moderate tricuspid regurgitation. Her EKG revealed a sinus tachycardia with rate of [address]-T wave changes. Her CT of the chest revealed multiple bilateral pulmonary infiltrate and cavitation consistent with septic embolization. IMPRESSION: 1. 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 2. History of heroin abuse with IV drug use. RECOMMENDATION: From the cardiac standpoint, at this time I see no indication for transesophageal echocardiogram. She will be evaluated by the infectious disease service. If they feel that a TONYA is needed, then we can proceed but I do not believe at this point it will make a difference in her treatment. Thank you for this consult. Will follow with you. DOREEN / LUCIEN: [id number] /
[2017-02-23 12:13] LABS: Hepatitis A Antibody IgM Non-Reactive (Non-Reactive); Hepatitis B Core IgM Non-Reactive (Non-Reactive)
[2017-02-23] MEDS: D5-0.9% NACL WITH KCL 20 MEQ/L 1,000 ML IV SCH ×2 (12:47→23:17)
[2017-02-23] MEDS: THIAMINE 100 MG TAB PO SCH ×3 (12:48→16:20)
[2017-02-23] MEDS: VANCOMYCIN 1,000 MG in SODIUM CHLORIDE 0.9% 250 ML IVPB SCH ×2 (12:48→21:18)
--- NOTE | 2017-02-23 14:23 | P.HPIM ---
History of Present Illness H&P Date: 02/23/17 Chief Complaint: Chest pain and shortness of breath Patient is a 31-year-old female with a known history of hearing abuse and depression and also previous history of benzodiazepine overdose is currently is here and on daily basis came to the hospital with complaints of not feeling well for the past one week and also chest pains on and off. Patient has been having chest pains mainly in the anterior retrosternal worsening for the past 2 days which made her to come to the hospital. Otherwise denied any cough or sputum production. Pain worsens with deep breathing. No fever no chills. Patient was previously left againest medical advise in October 2016. CT and the ground chest showed no evidence of pulmonary embolism. Multiple bilateral pulmonary infiltrates are discrete and show features of cavitation. Consider possibilities of septic emboli. Section showed mild right lower lobe pneumonia 2-D echocardiogram showed ejection fraction 55-60%. Moderate tricuspid regurgitation. Vegitation seen on tricuspid valve. Review of Systems Constitutional: Patient denies any fever or chills . No generalized weakness or weight loss. Abdomen: Patient denied nausea vomiting and diarrhea and abdominal pain. Cardiovascular: He does have chest pain and shortness of breath. No palpitations Respiratory: patient denied any cough is from production. No shortness of breath Neurologic: Patient denied any numbness or tingling headache. Musculoskeletal: Patient denies any complaints of joint swelling or deformity. Skin: Negative Psychiatric: Negative Endocrine: No heat or cold intolerance. No recent weight gain. Genitourinary: No dysuria or hematuria. All other 14 point ROS negative except the above Past Medical History Additional Past Medical History / Comment(s): Tacho tunnel, colitis, UTI and heroin abuse History of Any Multi-Drug Resistant Organisms: None Reported Past Surgical History: No Surgical Hx Reported Past Anesthesia/Blood Transfusion Reactions: No Reported Reaction Smoking Status: Current every day smoker Past Alcohol Use History: None Reported Past Drug Use History: Heroin Additional Drug Use History / Comment(s): She gives history that she has been IV drug abuser with heroin for 2 years and uses every day. She denies any other drug use. Patient is also sexually active without using protection. She denies history of HIV and denies being tested for HIV in the past. Patient has 2 children which she does not have custody. One is with her sister and one with the child's father. - Past Family History Father Family Medical History: No Reported History Sister(s) Family Medical History: No Reported History Medications and Allergies Home Medications Medication Instructions Recorded Confirmed Type No Known Home Medications [No 10/08/16 02/22/17 History Known Home Medications] Allergies Allergy/AdvReac Type Severity Reaction Status Date / Time No Known Allergies Allergy Verified 02/22/17 20:55 Physical Exam Vitals: Vital Signs Temp Pulse Pulse Resp BP BP Pulse Ox 02/23/17 11:00 84 18 89/62 97 02/23/17 10:00 93 16 87/62 97 02/23/17 09:00 101 H 21 112/61 94 L 02/23/17 08:00 98.7 F 115 H 21 98/49 91 L 02/23/17 07:00 124 H 16 111/70 95 02/23/17 06:00 123 H 28 H 101/59 94 L 02/23/17 05:00 124 H 33 H 97/64 96 02/23/17 04:00 99.3 F 108 H 27 H 98/61 98 02/23/17 03:00 106 H 27 H 96/59 96 02/23/17 02:00 108 H 16 95/59 97 02/23/17 01:45 16 02/23/17 01:00 101 H 19 96/58 02/23/17 00:00 101 H 18 88/61 98 02/22/17 23:02 97.9 F 105 H 02/22/17 22:44 98.2 F 105 H 14 110/61 98 02/22/17 22:00 104 H 22 118/54 98 02/22/17 21:57 111 H 22 110/64 98 02/22/17 21:29 100.9 F H 111 H 22 110/61 97 02/22/17 21:13 22 02/22/17 21:00 126 H 20 109/55 98 02/22/17 20:52 114 H 20 110/57 97 02/22/17 19:12 102.9 F H 130 H 18 110/60 95 Intake and Output 02/22/17 02/23/17 02/23/17 22:59 06:59 14:59 Intake Total 1005 375 Output Total 1350 350 Balance -345 25 Intake: IV 525 375 D5-0.9% NaCl with KCl 20 525 375 Meq/l 1,000 ml @ 75 mls/ hr IV .[id number] [facility] Rx#: [id number] Oral 480 Output: Urine 1350 350 Other: Weight 57.4 kg PHYSICAL EXAMINATION: Patient is lying in the bed comfortably, no acute distress, awake alert HEENT: Normocephalic. Neck is supple. Pupils reactive. Nostrils clear. Oral cavity is moist. Ears reveal no drainage. Neck reveals no JVD, carotid bruits, or thyromegaly. CHEST EXAMINATION: Trachea is central. Symmetrical expansion. Lung mclaughlin clear to auscultation and percussion. No wheezing CARDIAC: Normal S1, S2 with no gallops. Systolic murmur ABDOMEN: Soft. Bowel sounds normal. No organomegaly. No abdominal bruits. Extremities: reveal no edema. No clubbing or cyanosis Neurologically awake, alert, oriented x3 with well-coordinated movements. No focal deficits noted Skin: No rash or skin lesions. Psychiatric: Cooperative. Nonsuicidal Musculoskeletal: No joint swelling or deformity. Normal range of motion. Results CBC & Chem 7: 02/23/17 04:48 02/23/17 04:48 Labs: Abnormal Lab Results - Last 24 Hours (Table) 02/22/17 02/22/17 02/22/17 Range/Units 20:16 20:16 20:16 WBC 10.8 H (3.8-10.6) k/uL Hgb 11.3 L (11.4-16.0) gm/dL Hct 32.7 L (34.0-46.0) % Plt Count 113 L (150-450) k/uL Neutrophils # 9.2 H (1.3-7.7) k/uL Neutrophils # (Manual) (1.3-7.7) k/uL Lymphocytes # 0.7 L (1.0-4.8) k/uL Lymphocytes # (Manual) (1.0-4.8) k/uL Monocytes # (Manual) (0-1.0) k/uL D-Dimer (<0.60) mg/L FEU Sodium 126 L (137-145) mmol/L Potassium 3.1 L (3.5-5.1) mmol/L Chloride 88 L (98-107) mmol/L Carbon Dioxide 31 H (22-30) mmol/L BUN 20 H (7-17) mg/dL Glucose (74-99) mg/dL POC Glucose (mg/dL) (75-99) mg/dL Calcium 8.0 L (8.4-10.2) mg/dL Phosphorus (2.5-4.5) mg/dL AST 119 H (14-36) U/L ALT 89 H (9-52) U/L Alkaline Phosphatase 146 H (38-126) U/L Total Creatine Kinase 358 H (30-135) U/L Total Protein 6.0 L (6.3-8.2) g/dL Albumin 2.9 L (3.5-5.0) g/dL Urine Appearance (Clear) Urine Protein (Negative) Urine Blood (Negative) Ur Leukocyte Esterase (Negative) Urine WBC (0-5) /hpf Urine Bacteria (None) /hpf Hyaline Casts (0-2) /lpf Urine Mucus (None) /hpf Urine Opiates Screen (NotDetected) Ur Oxycodone Screen (NotDetected) U Benzodiazepines Scrn (NotDetected) 02/22/17 02/22/17 02/22/17 Range/Units 20:16 20:16 20:16 WBC (3.8-10.6) k/uL Hgb (11.4-16.0) gm/dL Hct (34.0-46.0) % Plt Count (150-450) k/uL Neutrophils # (1.3-7.7) k/uL Neutrophils # (Manual) (1.3-7.7) k/uL Lymphocytes # (1.0-4.8) k/uL Lymphocytes # (Manual) (1.0-4.8) k/uL Monocytes # (Manual) (0-1.0) k/uL D-Dimer 2.14 H (<0.60) mg/L FEU Sodium (137-145) mmol/L Potassium (3.5-5.1) mmol/L Chloride (98-107) mmol/L Carbon Dioxide (22-30) mmol/L BUN (7-17) mg/dL Glucose (74-99) mg/dL POC Glucose (mg/dL) (75-99) mg/dL Calcium (8.4-10.2) mg/dL Phosphorus (2.5-4.5) mg/dL AST (14-36) U/L ALT (9-52) U/L Alkaline Phosphatase (38-126) U/L Total Creatine Kinase (30-135) U/L Total Protein (6.3-8.2) g/dL Albumin (3.5-5.0) g/dL Urine Appearance Cloudy H (Clear) Urine Protein 2+ H (Negative) Urine Blood Small H (Negative) Ur Leukocyte Esterase Trace H (Negative) Urine WBC 11 H (0-5) /hpf Urine Bacteria Many H (None) /hpf Hyaline Casts 32 H (0-2) /lpf Urine Mucus Rare H (None) /hpf Urine Opiates Screen Detected H (NotDetected) Ur Oxycodone Screen Detected H (NotDetected) U Benzodiazepines Scrn Detected H (NotDetected) 02/22/17 02/23/17 02/23/17 Range/Units 23:03 04:48 04:48 WBC (3.8-10.6) k/uL Hgb (11.4-16.0) gm/dL Hct (34.0-46.0) % Plt Count 103 L (150-450) k/uL Neutrophils # (1.3-7.7) k/uL Neutrophils # (Manual) 7.90 H (1.3-7.7) k/uL Lymphocytes # (1.0-4.8) k/uL Lymphocytes # (Manual) 0.90 L (1.0-4.8) k/uL Monocytes # (Manual) 1.20 H (0-1.0) k/uL D-Dimer (<0.60) mg/L FEU Sodium (137-145) mmol/L Potassium (3.5-5.1) mmol/L Chloride (98-107) mmol/L Carbon Dioxide (22-30) mmol/L BUN (7-17) mg/dL Glucose 109 H (74-99) mg/dL POC Glucose (mg/dL) 116 H (75-99) mg/dL Calcium 7.8 L (8.4-10.2) mg/dL Phosphorus 2.3 L (2.5-4.5) mg/dL AST 209 H (14-36) U/L ALT 105 H (9-52) U/L Alkaline Phosphatase 155 H (38-126) U/L Total Creatine Kinase (30-135) U/L Total Protein 5.5 L (6.3-8.2) g/dL Albumin 2.4 L (3.5-5.0) g/dL Urine Appearance (Clear) Urine Protein (Negative) Urine Blood (Negative) Ur Leukocyte Esterase (Negative) Urine WBC (0-5) /hpf Urine Bacteria (None) /hpf Hyaline Casts (0-2) /lpf Urine Mucus (None) /hpf Urine Opiates Screen (NotDetected) Ur Oxycodone Screen (NotDetected) U Benzodiazepines Scrn (NotDetected) Microbiology - Last 24 Hours (Table) 02/22/17 20:10 Blood Culture Gram Stain - Preliminary Blood 02/22/17 20:10 Blood Culture - Final Blood 02/22/17 20:16 Urine Culture - Preliminary Urine,Voided Thrombosis Risk Factor Assmnt - DVT/VTE Prophylaxis DVT/VTE Prophylaxis: Pharmacologic Prophylaxis ordered - Choose All That Apply Any of the Below Risk Factors Present?: Yes Each Factor Represents 1 point: Serious lung disease incl. pneumonia (< 1month) Other Risk Factors: No Thrombosis Risk Factor Assessment Total Risk Factor Score: 1 Thrombosis Risk Factor Assessment Level: Low Risk Assessment and Plan Assessment: Chest pain and shortness of breath due to septic pulmonary emboli infective endocarditis with vegetation tricuspic valve Gram-positive cocci septicemia Acute urinary tract infection Active Heroin IVDU UDS positive for benzodiazepines oxycodone and opiates Hypovolemic hyponatremia improved Elevated liver Enzymes Previous history of benzodiazepine overdose DVT prophylaxis Plan: Patient will be continued on IV fluids. Antibiotics in the form of vancomycin and Zosyn. Follow-up urine culture and final blood culture report. ID, cardiology and pulmonary is following. Continue to monitor for withdrawal symptoms. Further recommendations based on the clinical course. Prognosis is guarded. Time with Patient: Greater than 30
[2017-02-23 16:43] LABS: HIV AB P24 Non-Reactive (Non-Reactive); HIV P24 AG Non-Reactive (Non-Reactive)
--- NOTE | 2017-02-23 18:23 | P.CON ---
Consult Note - . Consult date: 02/23/17 Assessment/Plan:: This is a 31-year-old female seen in the intensive care unit. Patient presents with chest pain that has been going on for 3 days with deep inspiration, cough, nasal congestion, sore throat and fever and chills. She has not had much appetite and has a weight loss of 15-20 pounds over the past one month Patient presented to [facility] with temperature 102.9, tachycardia, pulse ox of 95%. D-dimer was elevated at 2.14. CTA of the chest showed no pulmonary embolism but multiple bilateral pulmonary infiltrates that are discrete that show features of cavitation with differential of septic emboli, autoimmune lung disease. Ultrasound of the lower x-rays was negative for DVT. Sodium was 126 potassium 3.1 chloride 88. White count was 10.8. Total bilirubin was normal at 1.2 and other liver function tests were all elevated. Urinalysis was cloudy, protein 2+, blood small, leukoesterase trace, WBC is 11, bacteria many. Influenza testing was negative. HCG was negative. Urine drug screen was positive for opiates, oxycodone and benzodiazepines. Patient has hepatitis testing in process. Patient was started in the ER on Rocephin and Zosyn and admitted to the ICU. Pulmonary medicine and cardiology on consult. Patient is currently on Zosyn and vancomycin. Patient denies any previous infections secondary to her IV drug abuse. Patient is only used her arms for injection. She has an initial blood culture gram-positive cocci in clusters and urine culture in process. Repeat blood culture has been obtained. Chest x-ray shows mild right lower lobe pneumonia. She gives history that she has been IV drug abuser with heroin for 2 years and uses every day. She denies any other drug use. Patient is also sexually active without using protection. She denies history of HIV and denies being tested for HIV in the past. Patient has 2 children which she does not have custody. One is with her sister and one with the child's father. Patient becomes very tearful when discussing her children. She recognizes that she needs to stop drug abuse and she does wish to have custody of her children one day. Please see the consult note as dictated by nurse practitioner Valente Corina Wilder. 31-year-old who is actively using heroin who is developed evidence of tricuspid valve endocarditis. Her significant other in sexual partner is present. She has no exposure to hepatitis C. Testing is in process. Partner does not have HIV infection. Patient is instructed about the significant serious nature of her infection and the requirement for many weeks of antibiotic therapy to allow cure of her infection. Noncompliance with the plan could result in worsening infection and her . We'll need to work with paraplanner and high school social studies tutor for likely will need to be placed in an extended care facility to receive her course of intravenous antibiotic therapy at discharge. Would not place any long-term IV access at this time until patient's cooperation is understood. Repeat blood cultures are requested for ongoing evaluation for clearance of her bacteremia. Her partner has several good questions the patient only was concerned about when she was going to get her next pain medication. Poor understanding of the disease stages demonstrated a great concern to her poor prognosis. I agree with evaluation, assessment and plan as dictated by nurse practitioner Mrs. Corina Hdz.
[2017-02-23] MEDS: ceFAZolin IN SWFI 2 GM/20 ML SYRINGE IVP SCH (23:14)
[2017-02-24] MEDS: MORPHINE SULFATE 2 MG/ML SYRINGE IVP PRN ×7 (00:59→22:47)
[2017-02-24] MEDS: VANCOMYCIN 1,000 MG in SODIUM CHLORIDE 0.9% 250 ML IVPB SCH ×3 (03:33→20:23)
[2017-02-24] MEDS: LORazepam 2 MG/ML INJ IV PRN ×2 (05:50→10:08)
[2017-02-24 07:40] LABS: Basophils % (A) 0 %; Eosinophils # (A) 0.1 k/uL (0-0.7); Eosinophils % (A) 1 %; HCT 31.8 % (34.0-46.0); HGB 10.5 gm/dL (11.4-16.0); Lymphocytes # (A) 0.9 k/uL (1.0-4.8); Lymphocytes % (A) 11 %; MCV 81.9 fL (80.0-100.0); Mean Platelet Volume 11.2; Monocytes # (A) 0.3 k/uL (0-1.0); Monocytes % (A) 4 %; Neutrophils # (A) 6.2 k/uL (1.3-7.7); Neutrophils % (A) 79 %; Platelet Count 101 k/uL (150-450); RBC 3.88 m/uL (3.80-5.40); RDW 14.5 % (11.5-15.5); WBC 7.8 k/uL (3.8-10.6)
[2017-02-24 07:58] LABS: Anion Gap 7 mmol/L; Blood Urea Nitrogen 9 mg/dL (7-17); Calcium 7.4 mg/dL (8.4-10.2); Carbon Dioxide 24 mmol/L (22-30); Chloride 106 mmol/L (98-107); Glucose 115 mg/dL (74-99); Magnesium 1.7 mg/dL (1.6-2.3); Phosphorus 2.3 mg/dL (2.5-4.5); Sodium 137 mmol/L (137-145)
[2017-02-24] MEDS: PANTOPRAZOLE 40 MG TABLET PO SCH (07:58)
[2017-02-24] MEDS: ENOXAPARIN 40 MG/0.4 ML SYRINGE SQ SCH (07:58)
[2017-02-24] MEDS: ceFAZolin IN SWFI 2 GM/20 ML SYRINGE IVP SCH ×2 (08:00→17:23)
[2017-02-24] MEDS ORDERED: Potassium Replacement Protocol 1 EACH MISC MISCELLANE PRN ×2 (08:34→14:12)
[2017-02-24 08:38] LABS: Large Platelets Present
[2017-02-24] MEDS ORDERED: Magnesium Replacement Protocol 1 EACH MISC MISCELLANE PRN (08:43)
[2017-02-24] MEDS ORDERED: POTASSIUM CHLORIDE 20 MEQ in WATER FOR INJECTION 2 100ML.BAG IVPB SCH ×2 (08:45→14:15)
--- NOTE | 2017-02-24 09:26 | XR ---
EXAMINATION TYPE: XR chest 1V DATE OF EXAM: 02/24/2017 HISTORY: shortness of breath. REFERENCE: Previous study dated 02/23/2017. FINDINGS: There is worsening right basilar airspace disease and continuing left basilar airspace dise ase. The heart is not enlarged. I could not exclude a right-sided effusion. IMPRESSION: CONTINUING BIBASILAR AIRSPACE DISEASE, WORSE ON THE RIGHT THAN THE LEFT WITH AN ASSOCIATED SMALL, RIG HT-SIDED EFFUSION.
[2017-02-24] MEDS: POTASSIUM CHLORIDE 20 MEQ in SODIUM CHLORIDE 0.9% 100 ML IVPB SCH ×4 (10:25→17:28)
[2017-02-24] MEDS: MAGNESIUM SULFATE-D5W PMX 1 GM in DEXTROSE/WATER 1 100ML.BAG IVPB SCH ×2 (10:25→11:58)
[2017-02-24] MEDS ORDERED: VANCOMYCIN TROUGH DUE 1 EACH MISC MISCELLANE ONE (11:00)
[2017-02-24] MEDS: POTASSIUM CHLORIDE ER 20 MEQ TAB.ER PO SCH ×2 (11:26→13:04)
[2017-02-24] MEDS: D5-0.9% NACL WITH KCL 40 MEQ/L 1,000 ML IV SCH (11:27)
--- NOTE | 2017-02-24 13:44 | P.PN ---
Subjective Progress Note Date: 02/24/17 Principal diagnosis: Septic emboli Progress note dated 02/24/2017 31-year-old female with a history of IV drug abuse in the form of IV heroin. The patient presented with chest pain and difficulty breathing. She was found on CT of the chest to have multiple septic pulmonary emboli. She has a positive blood culture for presumptive staph aureus and a positive urine culture for gram-negative bacilli. The patient has a history of chronic heroin abuse. Also has a history of previous benzodiazepine overdose as well as chronic tobacco use. Denies significant alcohol intake. Does have a history of depression. Was recently seen at the other hospital for a possible UTI but was discharged without antibiotics. She presented here to the ER and was admitted to the ICU with what appeared to be septic emboli. Infectious disease is on board. The patient was started on Ancef Zosyn and vancomycin. As I mention the blood cultures were positive for staph aureus in the urine was positive for gram-negative bacilli, likely E. coli. She is feeling much better. Resting comfortably. Chest x-rays impressive as is the CAT scan. Objective - Vital Signs Vital signs: Vital Signs Temp 99.8 F H 02/24/17 07:00 Pulse 104 H 02/24/17 07:00 Resp 20 02/24/17 07:00 BP 111/65 02/24/17 07:00 Pulse Ox 92 L 02/24/17 07:00 Intake & Output 02/23/17 02/24/17 02/24/17 18:59 06:59 18:59 Intake Total 1237.5 487.5 Output Total 700 200 Balance 537.5 287.5 Intake: IV 937.5 487.5 D5-0.9% NaCl with KCl 20 600 225 Meq/l 1,000 ml @ 75 mls/ hr IV .[id number] DORI Rx#: [id number] Piperacillin-Tazobactam 3 87.5 12.5 .375 gm In Dextrose/Water 1 50ml.bag @ 12.5 mls/hr IVPB ONCE STA Rx#: [id number] Vancomycin 1,000 mg In 250 250 Sodium Chloride 0.9% 250 ml @ 125 mls/hr IVPB Q12H DORI Rx#:[id number] Oral 300 Output: Urine 700 200 - Exam No acute distress, oriented 3. HEENT examination is grossly unremarkable. Mucous membranes are moist. No oral lesions. Neck supple. Full range of motion. No adenopathy thyromegaly or neck vein distention. Cardiovascular examination reveals regular rhythm rate. S1-S2 normal. No S3 or S4. No discernible murmur noted. Lungs reveal a few scattered rhonchi. Breath sounds are equal. No wheezes. No crackles. Abdomen soft bowel sounds are heard. No masses or tenderness. Extremities are intact. No cyanosis clubbing or edema. Skin is without rash or lesion. Neurologic examination is brief but nonfocal. - Labs CBC & Chem 7: 02/24/17 07:18 02/24/17 07:18 Labs: Abnormal Lab Results - Last 24 Hours (Table) 02/22/17 02/24/17 02/24/17 Range/Units 20:16 07:18 07:18 Hgb 10.5 L (11.4-16.0) gm/dL Hct 31.8 L (34.0-46.0) % Plt Count 101 L (150-450) k/uL Lymphocytes # 0.9 L (1.0-4.8) k/uL Potassium 3.0 L* (3.5-5.1) mmol/L Glucose 115 H (74-99) mg/dL Calcium 7.4 L (8.4-10.2) mg/dL Phosphorus 2.3 L (2.5-4.5) mg/dL Hep C IgG Ab Reactive H (Non-Reactive) Microbiology - Last 24 Hours (Table) 02/23/17 08:47 Blood Culture Gram Stain - Preliminary Blood 02/22/17 20:16 Urine Culture - Preliminary Urine,Voided Gram Neg Bacilli 02/22/17 20:10 Blood Culture Gram Stain - Preliminary Blood Blood Culture - Preliminary Presumptive Staph aureus 02/23/17 08:47 Blood Culture - Final Blood Assessment and Plan Assessment: Assessment Multiple pulmonary septic emboli secondary to IV heroin abuse and likely right- sided endocarditis Positive blood cultures for presumptive staph aureus Presumptive urinary tract infection secondary to gram-negative bacilli Heroin abuse Previous history of benzodiazepine overdose Elevated liver enzymes Chronic and ongoing tobacco dependence History of depression Plan: Plan dated 02/24/2017 Infectious disease is seen the patient. The patient's on good antibiotics in the form of Ancef Zosyn and vancomycin. Blood cultures are positive for presumptive staph aureus. Urine was positive for gram-negative bacilli. The patient is resting comfortably. Hemodynamics are stable. Seen by cardiology. Seen by infectious disease. Not requiring any supplemental oxygen. We'll see only as needed. No additional recommendations are made. Prognosis is guarded. Time with Patient: Less than 30
[2017-02-24] MEDS: THIAMINE 100 MG TAB PO SCH ×2 (14:10→17:23)
[2017-02-24] MEDS: ACETAMINOPHEN TAB 325 MG TAB PO PRN (15:13)
[2017-02-24 17:32] LABS: Potassium 3.6 mmol/L (3.5-5.1)
[2017-02-25] MEDS: ceFAZolin IN SWFI 2 GM/20 ML SYRINGE IVP SCH ×3 (00:56→15:59)
[2017-02-25] MEDS: MORPHINE SULFATE 2 MG/ML SYRINGE IVP PRN ×7 (03:09→22:09)
[2017-02-25] MEDS: VANCOMYCIN 1,000 MG in SODIUM CHLORIDE 0.9% 250 ML IVPB SCH ×3 (03:10→20:26)
[2017-02-25] MEDS: D5-0.9% NACL WITH KCL 40 MEQ/L 1,000 ML IV SCH ×2 (07:05→11:54)
[2017-02-25 08:05] LABS: Anion Gap 6 mmol/L; Blood Urea Nitrogen 3 mg/dL (7-17); Calcium 7.7 mg/dL (8.4-10.2); Carbon Dioxide 23 mmol/L (22-30); Chloride 109 mmol/L (98-107); Glucose 101 mg/dL (74-99); Magnesium 1.9 mg/dL (1.6-2.3); Phosphorus 1.9 mg/dL (2.5-4.5); Sodium 138 mmol/L (137-145)
[2017-02-25 08:25] LABS: Basophils % (A) 0 %; Eosinophils % (A) 0 %; HCT 34.9 % (34.0-46.0); HGB 10.9 gm/dL (11.4-16.0); Hypochromasia Slight; Lymphocytes # (A) 1.2 k/uL (1.0-4.8); Lymphocytes % (A) 13 %; MCH 26.7 pg (25.0-35.0); MCHC 31.1 g/dL (31.0-37.0); MCV 85.6 fL (80.0-100.0); Mean Platelet Volume 10.9; Monocytes # (A) 0.5 k/uL (0-1.0); Monocytes % (A) 5 %; Neutrophils # (A) 6.9 k/uL (1.3-7.7); Neutrophils % (A) 77 %; Platelet Count 142 k/uL (150-450); RBC 4.08 m/uL (3.80-5.40); RDW 14.8 % (11.5-15.5); WBC 8.9 k/uL (3.8-10.6)
[2017-02-25] MEDS: PANTOPRAZOLE 40 MG TABLET PO SCH (08:28)
[2017-02-25] MEDS: ENOXAPARIN 40 MG/0.4 ML SYRINGE SQ SCH (08:29)
[2017-02-25] MEDS: LORazepam 2 MG/ML INJ IV PRN ×3 (08:29→21:58)
[2017-02-25 11:39] LABS: Glucose,Whole Blood 168 mg/dL (75-99)
[2017-02-25] MEDS: THIAMINE 100 MG TAB PO SCH ×2 (11:49→15:59)
[2017-02-25] MEDS: ACETAMINOPHEN TAB 325 MG TAB PO PRN (16:02)
[2017-02-26] MEDS: ceFAZolin IN SWFI 2 GM/20 ML SYRINGE IVP SCH ×3 (00:08→15:25)
[2017-02-26] MEDS: MORPHINE SULFATE 2 MG/ML SYRINGE IVP PRN ×8 (01:13→22:32)
[2017-02-26] MEDS: LORazepam 2 MG/ML INJ IV PRN ×2 (01:22→05:37)
[2017-02-26] MEDS: VANCOMYCIN 1,000 MG in SODIUM CHLORIDE 0.9% 250 ML IVPB SCH ×2 (04:12→11:28)
[2017-02-26] MEDS: D5-0.9% NACL WITH KCL 40 MEQ/L 1,000 ML IV SCH ×2 (05:36→15:23)
[2017-02-26] MEDS: PANTOPRAZOLE 40 MG TABLET PO SCH (07:14)
[2017-02-26] MEDS: ENOXAPARIN 40 MG/0.4 ML SYRINGE SQ SCH (07:33)
[2017-02-26 07:38] LABS: Basophils # (A) 0.1 k/uL (0-0.2); Basophils % (A) 1 %; Eosinophils # (A) 0.1 k/uL (0-0.7); Eosinophils % (A) 1 %; HCT 34.5 % (34.0-46.0); HGB 10.9 gm/dL (11.4-16.0); Lymphocytes # (A) 1.8 k/uL (1.0-4.8); Lymphocytes % (A) 19 %; MCH 26.9 pg (25.0-35.0); MCHC 31.6 g/dL (31.0-37.0); Monocytes # (A) 0.4 k/uL (0-1.0); Monocytes % (A) 4 %; Neutrophils # (A) 7.1 k/uL (1.3-7.7); Neutrophils % (A) 73 %; Platelet Count 236 k/uL (150-450); RBC 4.06 m/uL (3.80-5.40); RDW 13.9 % (11.5-15.5); WBC 9.7 k/uL (3.8-10.6)
[2017-02-26 08:18] LABS: Anion Gap 7 mmol/L; Blood Urea Nitrogen 2 mg/dL (7-17); Calcium 8.1 mg/dL (8.4-10.2); Carbon Dioxide 22 mmol/L (22-30); Chloride 111 mmol/L (98-107); Glucose 100 mg/dL (74-99); Magnesium 1.8 mg/dL (1.6-2.3); Phosphorus 2.6 mg/dL (2.5-4.5); Potassium 4.5 mmol/L (3.5-5.1); Sodium 140 mmol/L (137-145)
[2017-02-26] MEDS: THIAMINE 100 MG TAB PO SCH ×2 (11:27→17:42)
[2017-02-26] MEDS: ACETAMINOPHEN TAB 325 MG TAB PO PRN (22:10)
--- NOTE | 2017-02-26 22:24 | P.PN ---
Subjective Progress Note Date: 02/26/17 Principal diagnosis: This is a 31-year-old female seen in the intensive care unit. Patient presents with chest pain that has been going on for 3 days with deep inspiration, cough, nasal congestion, sore throat and fever and chills. She has not had much appetite and has a weight loss of 15-20 pounds over the past one month Patient presented to [facility] with temperature 102.9, tachycardia, pulse ox of 95%. D-dimer was elevated at 2.14. CTA of the chest showed no pulmonary embolism but multiple bilateral pulmonary infiltrates that are discrete that show features of cavitation with differential of septic emboli, autoimmune lung disease. Ultrasound of the lower x-rays was negative for DVT. Sodium was 126 potassium 3.1 chloride 88. White count was 10.8. Total bilirubin was normal at 1.2 and other liver function tests were all elevated. Urinalysis was cloudy, protein 2+, blood small, leukoesterase trace, WBC is 11, bacteria many. Influenza testing was negative. HCG was negative. Urine drug screen was positive for opiates, oxycodone and benzodiazepines. Patient has hepatitis testing in process. Patient was started in the ER on Rocephin and Zosyn and admitted to the ICU. Pulmonary medicine and cardiology on consult. Patient is currently on Zosyn and vancomycin. Patient denies any previous infections secondary to her IV drug abuse. Patient is only used her arms for injection. She has an initial blood culture gram-positive cocci in clusters and urine culture in process. Repeat blood culture has been obtained. Chest x-ray shows mild right lower lobe pneumonia. She gives history that she has been IV drug abuser with heroin for 2 years and uses every day. She denies any other drug use. Patient is also sexually active without using protection. She denies history of HIV and denies being tested for HIV in the past. Patient has 2 children which she does not have custody. One is with her sister and one with the child's father. Patient becomes very tearful when discussing her children. She recognizes that she needs to stop drug abuse and she does wish to have custody of her children one day. 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 Still complains of chest pain, but was sleeping soundly when I arrived. Objective - Vital Signs Vital signs: Vital Signs Temp 98.5 F 02/26/17 22:09 Pulse 92 02/26/17 22:09 Resp 16 02/26/17 22:09 BP 119/80 02/26/17 22:09 Pulse Ox 97 02/26/17 22:09 Intake & Output 02/26/17 02/26/17 02/27/17 06:59 18:59 06:59 Intake Total 475 1195 Balance 475 1195 Intake: Intake, IV Titration 475 775 Amount D5-0.9% NaCl with KCl 40 225 525 Meq/l 1,000 ml @ 75 mls/ hr IV .[id number] DORI Rx#: [id number] Vancomycin 1,000 mg In 250 250 Sodium Chloride 0.9% 250 ml @ 125 mls/hr IVPB Q8H DORI Rx#:[id number] Oral 420 Other: # Voids 1 - Exam Gen: This is a 31-year-old female. She is sitting up in the intensive care unit. She appears to be in no acute respiratory distress. Patient does appear to be weak. She is tearful during part of the evaluation. HEENT: Head is atraumatic, normocephalic. Pupils equal, round. Sclerae is anicteric. Conjunctiva pink. Mucous membranes of the mouth are dry. No thrush noted. NECK: Supple. No JVD. No lymphadenopathy. No thyromegaly. LUNGS: Scattered rhonchi. No intercostal retractions. HEART: Regular rate and rhythm. Systolic murmur. no heave or thrill ABDOMEN: Soft. Bowel sounds are present. No masses. Mild generalized tenderness. EXTREMITIES: No pedal edema. No calf tenderness. Dorsalis pedis +2 bilaterally. Multiple puncture sites noted to the bilateral arms with no signs of infection. No evidence of any petechiae or telangiectasia or splinter hemorrhages NEUROLOGICAL: Patient is awake, alert and oriented x3 - Labs CBC & Chem 7: 02/26/17 07:12 02/26/17 07:12 Labs: Abnormal Lab Results - Last 24 Hours (Table) 02/26/17 02/26/17 Range/Units 07:12 07:12 Hgb 10.9 L (11.4-16.0) gm/dL Chloride 111 H (98-107) mmol/L BUN 2 L (7-17) mg/dL Glucose 100 H (74-99) mg/dL Calcium 8.1 L (8.4-10.2) mg/dL Microbiology - Last 24 Hours (Table) 02/25/17 06:52 Blood Culture Gram Stain - Preliminary Blood Blood Culture - Preliminary Presumptive Staph aureus 02/25/17 06:52 Blood Culture - Preliminary Blood No Growth after 24 hours 02/23/17 08:47 Blood Culture Gram Stain - Final Blood Blood Culture - Final Staphylococcus aureus 02/25/17 07:18 Blood Culture - Final Blood Laboratory Results WBC 9.7 k/uL (3.8-10.6) 02/26/17 07:12 RBC 4.06 m/uL (3.80-5.40) 02/26/17 07:12 Hgb 10.9 gm/dL (11.4-16.0) L 02/26/17 07:12 Hct 34.5 % (34.0-46.0) 02/26/17 07:12 MCV 85.0 fL (80.0-100.0) 02/26/17 07:12 MCH 26.9 pg (25.0-35.0) 02/26/17 07:12 MCHC 31.6 g/dL (31.0-37.0) 02/26/17 07:12 RDW 13.9 % (11.5-15.5) 02/26/17 07:12 Plt Count 236 k/uL (150-450) 02/26/17 07:12 Neutrophils % 73 % 02/26/17 07:12 Neutrophils % (Manual) 74 % 02/23/17 04:48 Band Neutrophils % 5 % 02/23/17 04:48 Lymphocytes % 19 % 02/26/17 07:12 Lymphocytes % (Manual) 9 % 02/23/17 04:48 Monocytes % 4 % 02/26/17 07:12 Monocytes % (Manual) 12 % 02/23/17 04:48 Eosinophils % 1 % 02/26/17 07:12 Basophils % 1 % 02/26/17 07:12 Neutrophils # 7.1 k/uL (1.3-7.7) 02/26/17 07:12 Neutrophils # (Manual) 7.90 k/uL (1.3-7.7) H 02/23/17 04:48 Lymphocytes # 1.8 k/uL (1.0-4.8) 02/26/17 07:12 Lymphocytes # (Manual) 0.90 k/uL (1.0-4.8) L 02/23/17 04:48 Monocytes # 0.4 k/uL (0-1.0) 02/26/17 07:12 Monocytes # (Manual) 1.20 k/uL (0-1.0) H 02/23/17 04:48 Eosinophils # 0.1 k/uL (0-0.7) 02/26/17 07:12 Basophils # 0.1 k/uL (0-0.2) 02/26/17 07:12 Nucleated RBCs 0 /100 WBC (0-0) 02/23/17 04:48 Manual Slide Review Performed 02/23/17 04:48 Reactive Lymphocytes Present 02/23/17 04:48 Toxic Vacuolation Present 02/23/17 04:48 Large Platelets Present 02/24/17 07:18 Hypochromasia Slight 02/25/17 06:52 PT 10.8 sec (9.0-12.0) 02/22/17 20:16 INR 1.1 (<1.2) 02/22/17 20:16 APTT 28.4 sec (22.0-30.0) 02/22/17 20:16 D-Dimer 2.14 mg/L FEU (<0.60) H 02/22/17 20:16 Sodium 140 mmol/L (137-145) 02/26/17 07:12 Potassium 4.5 mmol/L (3.5-5.1) 02/26/17 07:12 Chloride 111 mmol/L (98-107) H 02/26/17 07:12 Carbon Dioxide 22 mmol/L (22-30) 02/26/17 07:12 Anion Gap 7 mmol/L 02/26/17 07:12 BUN 2 mg/dL (7-17) L 02/26/17 07:12 Creatinine 0.58 mg/dL (0.52-1.04) 02/26/17 07:12 Est GFR (MDRD) Af Amer >60 (>60 ml/min/1.73 sqM) 02/26/17 07:12 Est GFR (MDRD) Non-Af >60 (>60 ml/min/1.73 sqM) 02/26/17 07:12 Glucose 100 mg/dL (74-99) H 02/26/17 07:12 POC Glucose (mg/dL) 168 mg/dL (75-99) H 02/25/17 11:33 POC Glu [employer] ID Karen Leigh 02/25/17 11:33 Calcium 8.1 mg/dL (8.4-10.2) L 02/26/17 07:12 Phosphorus 2.6 mg/dL (2.5-4.5) 02/26/17 07:12 Magnesium 1.8 mg/dL (1.6-2.3) 02/26/17 07:12 Total Bilirubin 1.0 mg/dL (0.2-1.3) 02/23/17 04:48 AST 209 U/L (14-36) H 02/23/17 04:48 ALT 105 U/L (9-52) H 02/23/17 04:48 Alkaline Phosphatase 155 U/L (38-126) H 02/23/17 04:48 Total Creatine Kinase 358 U/L (30-135) H 02/22/17 20:16 CK-MB (CK-2) 1.0 ng/mL (0.0-2.4) 02/22/17 20:16 CK-MB (CK-2) Rel Index 0.3 02/22/17 20:16 Troponin I <0.012 ng/mL (0.000-0.034) 02/22/17 20:16 Total Protein 5.5 g/dL (6.3-8.2) L 02/23/17 04:48 Albumin 2.4 g/dL (3.5-5.0) L 02/23/17 04:48 Lipase 33 U/L (23-300) 02/22/17 20:16 Urine Color Yellow 02/22/17 20:16 Urine Appearance Cloudy (Clear) H 02/22/17 20:16 Urine pH 6.0 (5.0-8.0) 02/22/17 20:16 Ur Specific [place] 1.015 (1.001-1.035) 02/22/17 20:16 Urine Protein 2+ (Negative) H 02/22/17 20:16 Urine Glucose (UA) Negative (Negative) 02/22/17 20:16 Urine Ketones Negative (Negative) 02/22/17 20:16 Urine Blood Small (Negative) H 02/22/17 20:16 Urine Nitrite Negative (Negative) 02/22/17 20:16 Urine Bilirubin Negative (Negative) 02/22/17 20:16 Urine Urobilinogen 8.0 mg/dL (<2.0) 02/22/17 20:16 Ur Leukocyte Esterase Trace (Negative) H 02/22/17 20:16 Urine RBC 1 /hpf (0-5) 02/22/17 20:16 Urine WBC 11 /hpf (0-5) H 02/22/17 20:16 Ur Squamous Epith Cells 2 /hpf (0-4) 02/22/17 20:16 Urine Bacteria Many /hpf (None) H 02/22/17 20:16 Hyaline Casts 32 /lpf (0-2) H 02/22/17 20:16 Urine Mucus Rare /hpf (None) H 02/22/17 20:16 Urine HCG, Qual Not Detected (Not Detectd) 02/22/17 20:16 Vancomycin Trough 13.2 ug/mL 02/24/17 11:23 Urine Opiates Screen Detected (NotDetected) H 02/22/17 20:16 Ur Oxycodone Screen Detected (NotDetected) H 02/22/17 20:16 Urine Methadone Screen Not Detected (NotDetected) 02/22/17 20:16 Ur Propoxyphene Screen Not Detected (NotDetected) 02/22/17 20:16 Ur Barbiturates Screen Not Detected (NotDetected) 02/22/17 20:16 U Tricyclic Antidepress Not Detected (NotDetected) 02/22/17 20:16 Ur Phencyclidine Scrn Not Detected (NotDetected) 02/22/17 20:16 Ur Amphetamines Screen Not Detected (NotDetected) 02/22/17 20:16 U Methamphetamines Scrn Not Detected (NotDetected) 02/22/17 20:16 U Benzodiazepines Scrn Detected (NotDetected) H 02/22/17 20:16 Urine Cocaine Screen Not Detected (NotDetected) 02/22/17 20:16 U Marijuana (THC) Screen Not Detected (NotDetected) 02/22/17 20:16 Hepatitis A IgM Ab Non-Reactive (Non-Reactive) 02/22/17 20:16 Hep Bs Antigen Non-Reactive (Non-Reactive) 02/22/17 20:16 Hep B Core IgM Ab Non-Reactive (Non-Reactive) 02/22/17 20:16 Hep C IgG Ab Reactive (Non-Reactive) H 02/22/17 20:16 HIV-1 Antibody Non-Reactive (Non-Reactive) 02/22/17 20:16 HIV Ag/Ab Interpret (()) 02/22/17 20:16 HIV p24 Antibody Non-Reactive (Non-Reactive) 02/22/17 20:16 HIV-2 Antibody Non-Reactive (Non-Reactive) 02/22/17 20:16 HIV P24 Antigen Non-Reactive (Non-Reactive) 02/22/17 20:16 Influenza Type A RNA Not Detected (Not Detectd) 02/22/17 20:16 Influenza Type B (PCR) Not Detected (Not Detectd) 02/22/17 20:16 Microbiology 02/25/17 06:52 Blood Blood Culture Gram Stain - Preliminary 02/25/17 06:52 Blood Blood Culture - Preliminary Presumptive Staph aureus 02/25/17 06:52 Blood Blood Culture - Preliminary No Growth after 24 hours 02/23/17 08:47 Blood Blood Culture Gram Stain - Final 02/23/17 08:47 Blood Blood Culture - Final Staphylococcus aureus 02/25/17 07:18 Blood Blood Culture - Final 02/22/17 20:16 Urine,Voided Urine Culture - Final Escherichia coli 02/22/17 20:10 Blood Blood Culture Gram Stain - Final 02/22/17 20:10 Blood Blood Culture - Final Staphylococcus aureus 02/23/17 08:47 Blood Blood Culture - Final 02/22/17 20:10 Blood Blood Culture - Final Assessment and Plan (1) Septic pulmonary embolism Current Visit: Yes Status: Acute Code(s): I26.90 - SEPTIC PULMONARY EMBOLISM WITHOUT ACUTE COR PULMONALE SNOMED Code(s): 789576930 (2) 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 Her significant other in sexual partner is present. She has exposure to hepatitis C. Testing is in process. Partner does not have HIV infection. Patient is instructed her HIV test has come back negative and hepatitis C is positive. Patient is instructed about the significant serious nature of her infection and the requirement for many weeks of antibiotic therapy to allow cure of her infection. Noncompliance with the plan could result in worsening infection and her . We discussed that with her active injection drug use and attempts to use heroin during this hospital stay would make any type of more permanent IV access not amenable. We will work with her insurance company to see if she has a candidate for the linezolide therapy. If we can obtain negative blood cultures she potentially could be discharged to her drug rehabilitation facility on . Should between now and then actively decreased the amount of morphine she is receiving, Toradol is added to Cipro cannot impact her pain control somewhat. Current Visit: Yes Status: Acute Code(s): I33.0 - ACUTE AND SUBACUTE INFECTIVE ENDOCARDITIS; B95.61 - METHICILLIN SUSCEP STAPH INFCT CAUSING DIS CLASSD [id number] SNOMED Code(s): 55107095 (3) Uses drugs by injection Current Visit: Yes Status: Acute Code(s): WLP1100 - SNOMED Code(s): 217392659
--- NOTE | 2017-02-26 22:49 | P.PN ---
Subjective Progress Note Date: 02/24/17 Principal diagnosis: Infective endocarditis Patient is a 31-year-old female with a known history of hearing abuse and depression and also previous history of benzodiazepine overdose is currently is here and on daily basis came to the hospital with complaints of not feeling well for the past one week and also chest pains on and off. Patient has been having chest pains mainly in the anterior retrosternal worsening for the past 2 days which made her to come to the hospital. Otherwise denied any cough or sputum production. Pain worsens with deep breathing. No fever no chills. Patient was previously left againest medical advise in October 2016. CT and the ground chest showed no evidence of pulmonary embolism. Multiple bilateral pulmonary infiltrates are discrete and show features of cavitation. Consider possibilities of septic emboli. Section showed mild right lower lobe pneumonia 2-D echocardiogram showed ejection fraction 55-60%. Moderate tricuspid regurgitation. Vegitation seen on tricuspid valve. On 02/24/2017 Patient is transferred to medical floor now. Still complaining of chest pain. Otherwise Blood cultures are positive for presumptive staph aureus. Urine was positive for gram-negative bacilli. Repeat cultures were ordered. ID and pulmonary is following. No fever no chills. No shortness of breath. Requesting IV pain medications. All other review of systems negative except the above Current medications reviewed Objective - Vital Signs Vital signs: Vital Signs Temp 99.0 F 02/24/17 19:25 Pulse 95 02/24/17 19:25 Resp 20 02/24/17 16:00 BP 109/74 02/24/17 19:25 Pulse Ox 100 02/24/17 19:25 Intake & Output 02/24/17 02/24/17 02/25/17 06:59 18:59 06:59 Intake Total 2877.5 2380 Output Total 200 0 Balance 2677.5 2380 Intake: IV 487.5 450 D5-0.9% NaCl with KCl 20 225 450 Meq/l 1,000 ml @ 75 mls/ hr IV .[id number] [facility] Rx#: [id number] Piperacillin-Tazobactam 3 12.5 .375 gm In Dextrose/Water 1 50ml.bag @ 12.5 mls/hr IVPB [facility] Rx#: [id number] Vancomycin 1,000 mg In 250 Sodium Chloride 0.9% 250 ml @ 125 mls/hr IVPB Q12H [facility] Rx#:[id number] Intake, IV Titration 1310 850 Amount D5-0.9% NaCl with KCl 40 460 Meq/l 1,000 ml @ 75 mls/ hr IV .[id number] [facility] Rx#: [id number] Magnesium Sulfate-D5w Pmx 200 200 1 gm In Dextrose/Water 1 100ml.bag @ 100 mls/hr IVPB Q1H [facility] Rx#: [id number] Potassium Chloride 20 meq 400 400 In Sodium Chloride 0.9% 100 ml @ 100 mls/hr IVPB Q2H [facility] Rx#:[id number] Vancomycin 1,000 mg In 250 250 Sodium Chloride 0.9% 250 ml @ 125 mls/hr IVPB Q8H [facility] Rx#:[id number] Oral 1080 1080 Output: Urine 200 0 Other: # Voids 4 3 - Exam PHYSICAL EXAMINATION: Patient is lying in the bed comfortably, no acute distress, awake alert and oriented.. HEENT: Normocephalic. Neck is supple. Pupils reactive. Nostrils clear. Oral cavity is moist. Ears reveal no drainage. Neck reveals no JVD, carotid bruits, or thyromegaly. CHEST EXAMINATION: Trachea is central. Symmetrical expansion. Lung mclaughlin clear to auscultation and percussion. CARDIAC: Normal S1, S2 with no gallops. Systolic murmur ABDOMEN: Soft. Bowel sounds normal. No organomegaly. No abdominal bruits. Extremities: reveal no edema. No clubbing or cyanosis Neurologically awake, alert, oriented x3 with well-coordinated movements. No focal deficits noted Skin: No rash or skin lesions. Psychiatric: Coperative. Nonsuicidal Musculoskeletal: No joint swelling or deformity. Normal range of motion. - Labs CBC & Chem 7: 02/26/17 07:12 02/26/17 07:12 Labs: Abnormal Lab Results - Last 24 Hours (Table) 02/22/17 02/24/17 02/24/17 Range/Units 20:16 07:18 07:18 Hgb 10.5 L (11.4-16.0) gm/dL Hct 31.8 L (34.0-46.0) % Plt Count 101 L (150-450) k/uL Lymphocytes # 0.9 L (1.0-4.8) k/uL Potassium 3.0 L* (3.5-5.1) mmol/L Glucose 115 H (74-99) mg/dL Calcium 7.4 L (8.4-10.2) mg/dL Phosphorus 2.3 L (2.5-4.5) mg/dL Hep C IgG Ab Reactive H (Non-Reactive) Microbiology - Last 24 Hours (Table) 02/23/17 08:47 Blood Culture Gram Stain - Preliminary Blood 02/22/17 20:16 Urine Culture - Preliminary Urine,Voided Gram Neg Bacilli 02/22/17 20:10 Blood Culture Gram Stain - Preliminary Blood Blood Culture - Preliminary Presumptive Staph aureus 02/23/17 08:47 Blood Culture - Final Blood Assessment and Plan Assessment: Chest pain and shortness of breath due to septic pulmonary emboli infective endocarditis with vegetation tricuspic valve Gram-positive cocci septicemia Gram-negative Acute urinary tract infection Active Heroin IVDU UDS positive for benzodiazepines oxycodone and opiates Hypovolemic hyponatremia improved Elevated liver Enzymes Previous history of benzodiazepine overdose DVT prophylaxis Plan: Patient will be continued on IV fluids. Antibiotics in the form of vancomycin and Zosyn. Follow-up urine culture and final blood culture report. ID, cardiology and pulmonary is following. Continue to monitor for withdrawal symptoms. Further recommendations based on the clinical course. Prognosis is guarded.
--- NOTE | 2017-02-26 22:53 | P.PN ---
Subjective Progress Note Date: 02/25/17 Principal diagnosis: Infective endocarditis Patient is a 31-year-old female with a known history of hearing abuse and depression and also previous history of benzodiazepine overdose is currently is here and on daily basis came to the hospital with complaints of not feeling well for the past one week and also chest pains on and off. Patient has been having chest pains mainly in the anterior retrosternal worsening for the past 2 days which made her to come to the hospital. Otherwise denied any cough or sputum production. Pain worsens with deep breathing. No fever no chills. Patient was previously left againest medical advise in October 2016. CT and the ground chest showed no evidence of pulmonary embolism. Multiple bilateral pulmonary infiltrates are discrete and show features of cavitation. Consider possibilities of septic emboli. Section showed mild right lower lobe pneumonia 2-D echocardiogram showed ejection fraction 55-60%. Moderate tricuspid regurgitation. Vegitation seen on tricuspid valve. On 02/24/2017 Patient is transferred to medical floor now. Still complaining of chest pain. Otherwise Blood cultures are positive for presumptive staph aureus. Urine was positive for gram-negative bacilli. Repeat cultures were ordered. ID and pulmonary is following. No fever no chills. No shortness of breath. Requesting IV pain medications. On 02/25/2017 Patient is still requiring IV pain medications. Continued on Dilaudid and Toradol IV. Repeat cultures have been negative so far. Continued on antibiotics in the form of vancomycin and cefazolin. ID and pulmonary is following.Patient is tolerating oral diet. All other review of systems negative except the above Current medications reviewed Objective - Vital Signs Vital signs: Vital Signs Temp 98.7 F 02/25/17 18:02 Pulse 95 02/25/17 16:00 Resp 18 02/25/17 16:00 BP 122/86 02/25/17 15:00 Pulse Ox 96 02/25/17 15:00 Intake & Output 02/25/17 02/25/17 02/26/17 06:59 18:59 06:59 Intake Total 1300 1080 475 Output Total 0 Balance 1300 1080 475 Intake: IV 1200 D5-0.9% NaCl with KCl 20 1200 Meq/l 1,000 ml @ 75 mls/ hr IV .[id number] [facility] Rx#: [id number] Intake, IV Titration 475 Amount D5-0.9% NaCl with KCl 40 225 Meq/l 1,000 ml @ 75 mls/ hr IV .[id number] [facility] Rx#: [id number] Vancomycin 1,000 mg In 250 Sodium Chloride 0.9% 250 ml @ 125 mls/hr IVPB Q8H [facility] Rx#:[id number] Oral 100 1080 Output: Urine 0 Other: # Voids 1 3 1 - Exam PHYSICAL EXAMINATION: Patient is lying in the bed comfortably, no acute distress, awake alert and oriented.. HEENT: Normocephalic. Neck is supple. Pupils reactive. Nostrils clear. Oral cavity is moist. Ears reveal no drainage. Neck reveals no JVD, carotid bruits, or thyromegaly. CHEST EXAMINATION: Trachea is central. Symmetrical expansion. Lung mclaughlin clear to auscultation and percussion. CARDIAC: Normal S1, S2 with no gallops. Systolic murmur ABDOMEN: Soft. Bowel sounds normal. No organomegaly. No abdominal bruits. Extremities: reveal no edema. No clubbing or cyanosis Neurologically awake, alert, oriented x3 with well-coordinated movements. No focal deficits noted Skin: No rash or skin lesions. Psychiatric: Coperative. Nonsuicidal Musculoskeletal: No joint swelling or deformity. Normal range of motion. - Labs CBC & Chem 7: 02/26/17 07:12 02/26/17 07:12 Labs: Abnormal Lab Results - Last 24 Hours (Table) 02/25/17 02/25/17 02/25/17 Range/Units 06:52 06:52 11:33 Hgb 10.9 L (11.4-16.0) gm/dL Plt Count 142 L (150-450) k/uL Chloride 109 H (98-107) mmol/L BUN 3 L (7-17) mg/dL Glucose 101 H (74-99) mg/dL POC Glucose (mg/dL) 168 H (75-99) mg/dL Calcium 7.7 L (8.4-10.2) mg/dL Phosphorus 1.9 L (2.5-4.5) mg/dL Microbiology - Last 24 Hours (Table) 02/22/17 20:16 Urine Culture - Final Urine,Voided Escherichia coli 02/22/17 20:10 Blood Culture Gram Stain - Final Blood Blood Culture - Final Staphylococcus aureus 02/23/17 08:47 Blood Culture Gram Stain - Preliminary Blood Blood Culture - Preliminary Presumptive Staph aureus Assessment and Plan Assessment: Chest pain and shortness of breath due to septic pulmonary emboli infective endocarditis with vegetation tricuspic valve Gram-positive cocci septicemia Gram-negative Acute urinary tract infection Active Heroin IVDU UDS positive for benzodiazepines oxycodone and opiates Hypovolemic hyponatremia improved Elevated liver Enzymes Previous history of benzodiazepine overdose DVT prophylaxis Plan: Patient will be continued on IV fluids. Antibiotics in the form of vancomycin and cefazolin as per ID recommendations. Pain control. ID, cardiology and pulmonary is following. Continue to monitor for withdrawal symptoms. Further recommendations based on the clinical course. Prognosis is guarded.
--- NOTE | 2017-02-26 22:54 | P.PN ---
Subjective Progress Note Date: 02/26/17 Principal diagnosis: Infective endocarditis Patient is a 31-year-old female with a known history of hearing abuse and depression and also previous history of benzodiazepine overdose is currently is here and on daily basis came to the hospital with complaints of not feeling well for the past one week and also chest pains on and off. Patient has been having chest pains mainly in the anterior retrosternal worsening for the past 2 days which made her to come to the hospital. Otherwise denied any cough or sputum production. Pain worsens with deep breathing. No fever no chills. Patient was previously left againest medical advise in October 2016. CT and the ground chest showed no evidence of pulmonary embolism. Multiple bilateral pulmonary infiltrates are discrete and show features of cavitation. Consider possibilities of septic emboli. Section showed mild right lower lobe pneumonia 2-D echocardiogram showed ejection fraction 55-60%. Moderate tricuspid regurgitation. Vegitation seen on tricuspid valve. On 02/24/2017 Patient is transferred to medical floor now. Still complaining of chest pain. Otherwise Blood cultures are positive for presumptive staph aureus. Urine was positive for gram-negative bacilli. Repeat cultures were ordered. ID and pulmonary is following. No fever no chills. No shortness of breath. Requesting IV pain medications. On 02/25/2017 Patient is still requiring IV pain medications. Continued on Dilaudid and Toradol IV. Repeat cultures have been negative so far. Continued on antibiotics in the form of vancomycin and cefazolin. ID and pulmonary is following.Patient is tolerating oral diet. On 02/26/2017 Repeat cultures done on 02/25/2017 is still showing presumptive staph aureus. Patient is being continued on vancomycin and cefazolin. No fever no chills. No complaints of worsening shortness of breath. Pain is fairly controlled. Otherwise no acute overnight issues. ID is following. All other review of systems negative except the above Current medications reviewed Objective - Vital Signs Vital signs: Vital Signs Temp 100.2 F H 02/26/17 15:00 Pulse 94 02/26/17 16:00 Resp 18 02/26/17 16:00 BP 131/90 02/26/17 15:00 Pulse Ox 97 02/26/17 15:00 Intake & Output 02/26/17 02/26/17 02/27/17 06:59 18:59 06:59 Intake Total 475 1195 Balance 475 1195 Intake: Intake, IV Titration 475 775 Amount D5-0.9% NaCl with KCl 40 225 525 Meq/l 1,000 ml @ 75 mls/ hr IV .[id number] [facility] Rx#: [id number] Vancomycin 1,000 mg In 250 250 Sodium Chloride 0.9% 250 ml @ 125 mls/hr IVPB Q8H [facility] Rx#:[id number] Oral 420 Other: # Voids 1 - Exam PHYSICAL EXAMINATION: Patient is lying in the bed comfortably, no acute distress, awake alert and oriented.. HEENT: Normocephalic. Neck is supple. Pupils reactive. Nostrils clear. Oral cavity is moist. Ears reveal no drainage. Neck reveals no JVD, carotid bruits, or thyromegaly. CHEST EXAMINATION: Trachea is central. Symmetrical expansion. Lung mclaughlin clear to auscultation and percussion. CARDIAC: Normal S1, S2 with no gallops. Systolic murmur ABDOMEN: Soft. Bowel sounds normal. No organomegaly. No abdominal bruits. Extremities: reveal no edema. No clubbing or cyanosis Neurologically awake, alert, oriented x3 with well-coordinated movements. No focal deficits noted Skin: No rash or skin lesions. Psychiatric: Coperative. Nonsuicidal Musculoskeletal: No joint swelling or deformity. Normal range of motion. - Labs CBC & Chem 7: 02/26/17 07:12 02/26/17 07:12 Labs: Abnormal Lab Results - Last 24 Hours (Table) 02/26/17 02/26/17 Range/Units 07:12 07:12 Hgb 10.9 L (11.4-16.0) gm/dL Chloride 111 H (98-107) mmol/L BUN 2 L (7-17) mg/dL Glucose 100 H (74-99) mg/dL Calcium 8.1 L (8.4-10.2) mg/dL Microbiology - Last 24 Hours (Table) 02/25/17 06:52 Blood Culture Gram Stain - Preliminary Blood 02/25/17 06:52 Blood Culture - Preliminary Blood No Growth after 24 hours 02/23/17 08:47 Blood Culture Gram Stain - Final Blood Blood Culture - Final Staphylococcus aureus 02/25/17 07:18 Blood Culture - Final Blood Assessment and Plan Assessment: Chest pain and shortness of breath due to septic pulmonary emboli infective endocarditis with vegetation tricuspic valve Gram-positive cocci septicemia Gram-negative Acute urinary tract infection Active Heroin IVDU UDS positive for benzodiazepines oxycodone and opiates Hypovolemic hyponatremia improved Elevated liver Enzymes Previous history of benzodiazepine overdose DVT prophylaxis Plan: Patient will be continued on IV fluids. Antibiotics in the form of vancomycin and cefazolin as per ID recommendations. Pain control. ID, cardiology and pulmonary is following. Continue to monitor for withdrawal symptoms. Further recommendations based on the clinical course. Prognosis is guarded.
[2017-02-27] MEDS: KETOROLAC 30 MG/ML 1 ML VIAL IVP SCH ×5 (01:11→22:47)
[2017-02-27] MEDS: ceFAZolin IN SWFI 2 GM/20 ML SYRINGE IVP SCH ×4 (01:12→22:48)
[2017-02-27] MEDS: MORPHINE SULFATE 2 MG/ML SYRINGE IVP PRN ×6 (02:58→19:57)
[2017-02-27] MEDS ORDERED: VANCOMYCIN TROUGH DUE 1 EACH MISC MISCELLANE ONE (03:00)
[2017-02-27 03:50] LABS: Basophils # (A) 0.1 k/uL (0-0.2); Basophils % (A) 1 %; Eosinophils # (A) 0.1 k/uL (0-0.7); Eosinophils % (A) 1 %; HCT 33.9 % (34.0-46.0); HGB 10.8 gm/dL (11.4-16.0); Hypochromasia Slight; Lymphocytes # (A) 1.9 k/uL (1.0-4.8); Lymphocytes % (A) 25 %; MCH 27.1 pg (25.0-35.0); MCHC 31.9 g/dL (31.0-37.0); MCV 85.1 fL (80.0-100.0); Mean Platelet Volume 8.7; Monocytes # (A) 0.5 k/uL (0-1.0); Monocytes % (A) 6 %; Neutrophils % (A) 65 %; Platelet Count 254 k/uL (150-450); RBC 3.99 m/uL (3.80-5.40); RDW 14.2 % (11.5-15.5); WBC 7.7 k/uL (3.8-10.6)
[2017-02-27 04:06] LABS: Anion Gap 7 mmol/L; Blood Urea Nitrogen 3 mg/dL (7-17); Calcium 8.2 mg/dL (8.4-10.2); Carbon Dioxide 24 mmol/L (22-30); Chloride 110 mmol/L (98-107); Glucose 91 mg/dL (74-99); Potassium 4.6 mmol/L (3.5-5.1); Sodium 141 mmol/L (137-145)
[2017-02-27] MEDS: PANTOPRAZOLE 40 MG TABLET PO SCH (07:22)
[2017-02-27] MEDS: ENOXAPARIN 40 MG/0.4 ML SYRINGE SQ SCH (07:22)
[2017-02-27] MEDS: THIAMINE 100 MG TAB PO SCH ×2 (11:57→16:49)
--- NOTE | 2017-02-27 21:16 | PN ---
PROGRESS NOTE DATE OF SERVICE: 02/27/2017 The patient is a 31-year-old female patient with history of heroin abuse and depression, previous history of benzodiazepine overdose, was admitted with complaint of chest pain, was found to have septic pulmonary emboli with infective endocarditis and gram-positive septicemia. The patient is seen in the room. She is resting comfortably in no acute distress. VITAL SIGNS; temperature of 97.9, pulse 85, respiration 18, blood pressure 128/87, O2 saturation 100% on room air. GENERAL EXAM: Patient is awake, alert, oriented x3. HEENT atraumatic, normocephalic. Pupils equal and reactive to light. Extraocular movements intact. Buccal mucosa is fair. NECK; is supple without any goiter or lymphadenopathy. JVD is negative. RESPIRATORY EXAM: Lungs are clear to auscultate. No rales, rhonchi, or wheezes. Cardiovascular examination: HEART; is regular rate and rhythm without any murmurs or gallop rhythm. ABDOMEN/ GI: Abdomen is soft, nontender, nondistended. No guarding or rigidity. Bowel sounds are positive. EXTREMITIES: No edema, clubbing or cyanosis. Pulses are palpable. NEUROLOGICAL EXAM: Patient is awake, alert, oriented x3. She has no motor or sensory deficit. Cranial nerves 2-12 grossly intact. SKIN is without rashes or pigmentation and is intact. PSYCHIATRIC EXAM: Patient is cooperative with fair judgment. MUSCULOSKELETAL: No joint deformities or swelling. Patient moves all 4 extremities. LYMPHATIC: No palpable lymph nodes in cervical and axillary area. LAB: CBC, white blood count of 7.7, hemoglobin 10.8, hematocrit 33.9, and platelet count of 254. Chemical profile sodium 141, potassium 4.6, chloride 110, bicarb of 24, BUN of 3, creatinine 0.6. ASSESSMENT: 1. Acute septic pulmonary emboli. 2. Infective endocarditis with tricuspid valves vegetations. 3. Gram positive septicemia. 4. Gram negative acute complicated urinary tract infection. 5. IV drug abuse. 6. Benzodiazepine abuse. 7. Hypovolemic hyponatremia. 8. Elevated liver enzymes. 9. DVT prophylaxis. The patient is currently on IV vancomycin and cefazolin. Infectious Disease is following. ID plans to adjust patient's antibiotic treatment. Since repeat cultures are negative, plan is to arrange with insurance for the patient to go to rehab for substance abuse and also for IV antibiotic treatment on multiple occasions and then repeated counseling done on IV drug abuse. The seriousness of IV drug abuse and lethal complications in case of noncompliance and continued IV and continued use of IV access for drug abuse. The patient is awake, alert and oriented and is able to understand. Await further recommendations on the duration and type of IV antibiotics from ID. Continue current management at this point. MMDORINDAL / IJN: [id number] / VALENTINO
--- NOTE | 2017-02-27 22:02 | P.PN ---
Subjective Progress Note Date: 02/27/17 Principal diagnosis: This is a 31-year-old female seen in the intensive care unit. Patient presents with chest pain that has been going on for 3 days with deep inspiration, cough, nasal congestion, sore throat and fever and chills. She has not had much appetite and has a weight loss of 15-20 pounds over the past one month Patient presented to [facility] with temperature 102.9, tachycardia, pulse ox of 95%. D-dimer was elevated at 2.14. CTA of the chest showed no pulmonary embolism but multiple bilateral pulmonary infiltrates that are discrete that show features of cavitation with differential of septic emboli, autoimmune lung disease. Ultrasound of the lower x-rays was negative for DVT. Sodium was 126 potassium 3.1 chloride 88. White count was 10.8. Total bilirubin was normal at 1.2 and other liver function tests were all elevated. Urinalysis was cloudy, protein 2+, blood small, leukoesterase trace, WBC is 11, bacteria many. Influenza testing was negative. HCG was negative. Urine drug screen was positive for opiates, oxycodone and benzodiazepines. Patient has hepatitis testing in process. Patient was started in the ER on Rocephin and Zosyn and admitted to the ICU. Pulmonary medicine and cardiology on consult. Patient is currently on Zosyn and vancomycin. Patient denies any previous infections secondary to her IV drug abuse. Patient is only used her arms for injection. She has an initial blood culture gram-positive cocci in clusters and urine culture in process. Repeat blood culture has been obtained. Chest x-ray shows mild right lower lobe pneumonia. She gives history that she has been IV drug abuser with heroin for 2 years and uses every day. She denies any other drug use. Patient is also sexually active without using protection. She denies history of HIV and denies being tested for HIV in the past. Patient has 2 children which she does not have custody. One is with her sister and one with the child's father. Patient becomes very tearful when discussing her children. She recognizes that she needs to stop drug abuse and she does wish to have custody of her children one day. 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 Still complains of chest pain, but was sleeping soundly when I arrived. Objective - Vital Signs Vital signs: Vital Signs Temp 97.9 F 02/27/17 21:55 Pulse 87 02/27/17 21:55 Resp 18 02/27/17 21:55 BP 122/84 02/27/17 21:55 Pulse Ox 97 02/27/17 21:55 Intake & Output 02/27/17 02/27/17 02/28/17 06:59 18:59 06:59 Intake Total 525 240 Balance 525 240 Weight 57.4 kg Intake: Intake, IV Titration 375 0 Amount D5-0.9% NaCl with KCl 40 375 0 Meq/l 1,000 ml @ 75 mls/ hr IV .[id number] DORI Rx#: [id number] Oral 150 240 Other: Voiding Method Toilet # Voids 2 - Exam Gen: This is a 31-year-old female. Stronger today. Sitting upright was talking on the phone with her mother. Less tearful and anxious but has many questions HEENT: Head is atraumatic, normocephalic. Pupils equal, round. Sclerae is anicteric. Conjunctiva pink. Mucous membranes of the mouth are dry. No thrush noted. NECK: Supple. No JVD. No lymphadenopathy. No thyromegaly. LUNGS: Scattered rhonchi. No intercostal retractions. HEART: Regular rate and rhythm. Systolic murmur. no heave or thrill ABDOMEN: Soft. Bowel sounds are present. No masses. Mild generalized tenderness. EXTREMITIES: No pedal edema. No calf tenderness. Dorsalis pedis +2 bilaterally. Multiple puncture sites noted to the bilateral arms with no signs of infection. No evidence of any petechiae or telangiectasia or splinter hemorrhages NEUROLOGICAL: Patient is awake, alert and oriented x3 - Labs CBC & Chem 7: 02/27/17 02:48 02/27/17 02:48 Labs: Abnormal Lab Results - Last 24 Hours (Table) 02/27/17 02/27/17 Range/Units 02:48 02:48 Hgb 10.8 L (11.4-16.0) gm/dL Hct 33.9 L (34.0-46.0) % Chloride 110 H (98-107) mmol/L BUN 3 L (7-17) mg/dL Calcium 8.2 L (8.4-10.2) mg/dL Phosphorus 5.0 H (2.5-4.5) mg/dL Microbiology - Last 24 Hours (Table) 02/25/17 06:52 Blood Culture Gram Stain - Final Blood Blood Culture - Final Methicillin resist S. aureus 02/26/17 11:35 Blood Culture - Preliminary Blood No Growth after 24 hours 02/25/17 06:52 Blood Culture - Preliminary Blood No Growth after 48 hours Laboratory Results WBC 7.7 k/uL (3.8-10.6) 02/27/17 02:48 RBC 3.99 m/uL (3.80-5.40) 02/27/17 02:48 Hgb 10.8 gm/dL (11.4-16.0) L 02/27/17 02:48 Hct 33.9 % (34.0-46.0) L 02/27/17 02:48 MCV 85.1 fL (80.0-100.0) 02/27/17 02:48 MCH 27.1 pg (25.0-35.0) 02/27/17 02:48 MCHC 31.9 g/dL (31.0-37.0) 02/27/17 02:48 RDW 14.2 % (11.5-15.5) 02/27/17 02:48 Plt Count 254 k/uL (150-450) 02/27/17 02:48 Neutrophils % 65 % 02/27/17 02:48 Neutrophils % (Manual) 74 % 02/23/17 04:48 Band Neutrophils % 5 % 02/23/17 04:48 Lymphocytes % 25 % 02/27/17 02:48 Lymphocytes % (Manual) 9 % 02/23/17 04:48 Monocytes % 6 % 02/27/17 02:48 Monocytes % (Manual) 12 % 02/23/17 04:48 Eosinophils % 1 % 02/27/17 02:48 Basophils % 1 % 02/27/17 02:48 Neutrophils # 5.0 k/uL (1.3-7.7) 02/27/17 02:48 Neutrophils # (Manual) 7.90 k/uL (1.3-7.7) H 02/23/17 04:48 Lymphocytes # 1.9 k/uL (1.0-4.8) 02/27/17 02:48 Lymphocytes # (Manual) 0.90 k/uL (1.0-4.8) L 02/23/17 04:48 Monocytes # 0.5 k/uL (0-1.0) 02/27/17 02:48 Monocytes # (Manual) 1.20 k/uL (0-1.0) H 02/23/17 04:48 Eosinophils # 0.1 k/uL (0-0.7) 02/27/17 02:48 Basophils # 0.1 k/uL (0-0.2) 02/27/17 02:48 Nucleated RBCs 0 /100 WBC (0-0) 02/23/17 04:48 Manual Slide Review Performed 02/23/17 04:48 Reactive Lymphocytes Present 02/23/17 04:48 Toxic Vacuolation Present 02/23/17 04:48 Large Platelets Present 02/24/17 07:18 Hypochromasia Slight 02/27/17 02:48 PT 10.8 sec (9.0-12.0) 02/22/17 20:16 INR 1.1 (<1.2) 02/22/17 20:16 APTT 28.4 sec (22.0-30.0) 02/22/17 20:16 D-Dimer 2.14 mg/L FEU (<0.60) H 02/22/17 20:16 Sodium 141 mmol/L (137-145) 02/27/17 02:48 Potassium 4.6 mmol/L (3.5-5.1) 02/27/17 02:48 Chloride 110 mmol/L (98-107) H 02/27/17 02:48 Carbon Dioxide 24 mmol/L (22-30) 02/27/17 02:48 Anion Gap 7 mmol/L 02/27/17 02:48 BUN 3 mg/dL (7-17) L 02/27/17 02:48 Creatinine 0.60 mg/dL (0.52-1.04) 02/27/17 02:48 Est GFR (MDRD) Af Amer >60 (>60 ml/min/1.73 sqM) 02/27/17 02:48 Est GFR (MDRD) Non-Af >60 (>60 ml/min/1.73 sqM) 02/27/17 02:48 Glucose 91 mg/dL (74-99) 02/27/17 02:48 POC Glucose (mg/dL) 168 mg/dL (75-99) H 02/25/17 11:33 POC Glu Clinical Team Manager ID Karen Leigh 02/25/17 11:33 Calcium 8.2 mg/dL (8.4-10.2) L 02/27/17 02:48 Phosphorus 5.0 mg/dL (2.5-4.5) H 02/27/17 02:48 Magnesium 2.0 mg/dL (1.6-2.3) 02/27/17 02:48 Total Bilirubin 1.0 mg/dL (0.2-1.3) 02/23/17 04:48 AST 209 U/L (14-36) H 02/23/17 04:48 ALT 105 U/L (9-52) H 02/23/17 04:48 Alkaline Phosphatase 155 U/L (38-126) H 02/23/17 04:48 Total Creatine Kinase 358 U/L (30-135) H 02/22/17 20:16 CK-MB (CK-2) 1.0 ng/mL (0.0-2.4) 02/22/17 20:16 CK-MB (CK-2) Rel Index 0.3 02/22/17 20:16 Troponin I <0.012 ng/mL (0.000-0.034) 02/22/17 20:16 Total Protein 5.5 g/dL (6.3-8.2) L 02/23/17 04:48 Albumin 2.4 g/dL (3.5-5.0) L 02/23/17 04:48 Lipase 33 U/L (23-300) 02/22/17 20:16 Urine Color Yellow 02/22/17 20:16 Urine Appearance Cloudy (Clear) H 02/22/17 20:16 Urine pH 6.0 (5.0-8.0) 02/22/17 20:16 Ur Specific [place] 1.015 (1.001-1.035) 02/22/17 20:16 Urine Protein 2+ (Negative) H 02/22/17 20:16 Urine Glucose (UA) Negative (Negative) 02/22/17 20:16 Urine Ketones Negative (Negative) 02/22/17 20:16 Urine Blood Small (Negative) H 02/22/17 20:16 Urine Nitrite Negative (Negative) 02/22/17 20:16 Urine Bilirubin Negative (Negative) 02/22/17 20:16 Urine Urobilinogen 8.0 mg/dL (<2.0) 02/22/17 20:16 Ur Leukocyte Esterase Trace (Negative) H 02/22/17 20:16 Urine RBC 1 /hpf (0-5) 02/22/17 20:16 Urine WBC 11 /hpf (0-5) H 02/22/17 20:16 Ur Squamous Epith Cells 2 /hpf (0-4) 02/22/17 20:16 Urine Bacteria Many /hpf (None) H 02/22/17 20:16 Hyaline Casts 32 /lpf (0-2) H 02/22/17 20:16 Urine Mucus Rare /hpf (None) H 02/22/17 20:16 Urine HCG, Qual Not Detected (Not Detectd) 02/22/17 20:16 Vancomycin Trough <5.0 ug/mL 02/27/17 02:48 Urine Opiates Screen Detected (NotDetected) H 02/22/17 20:16 Ur Oxycodone Screen Detected (NotDetected) H 02/22/17 20:16 Urine Methadone Screen Not Detected (NotDetected) 02/22/17 20:16 Ur Propoxyphene Screen Not Detected (NotDetected) 02/22/17 20:16 Ur Barbiturates Screen Not Detected (NotDetected) 02/22/17 20:16 U Tricyclic Antidepress Not Detected (NotDetected) 02/22/17 20:16 Ur Phencyclidine Scrn Not Detected (NotDetected) 02/22/17 20:16 Ur Amphetamines Screen Not Detected (NotDetected) 02/22/17 20:16 U Methamphetamines Scrn Not Detected (NotDetected) 02/22/17 20:16 U Benzodiazepines Scrn Detected (NotDetected) H 02/22/17 20:16 Urine Cocaine Screen Not Detected (NotDetected) 02/22/17 20:16 U Marijuana (THC) Screen Not Detected (NotDetected) 02/22/17 20:16 Hepatitis A IgM Ab Non-Reactive (Non-Reactive) 02/22/17 20:16 Hep Bs Antigen Non-Reactive (Non-Reactive) 02/22/17 20:16 Hep B Core IgM Ab Non-Reactive (Non-Reactive) 02/22/17 20:16 Hep C IgG Ab Reactive (Non-Reactive) H 02/22/17 20:16 HIV-1 Antibody Non-Reactive (Non-Reactive) 02/22/17 20:16 HIV Ag/Ab Interpret (()) 02/22/17 20:16 HIV p24 Antibody Non-Reactive (Non-Reactive) 02/22/17 20:16 HIV-2 Antibody Non-Reactive (Non-Reactive) 02/22/17 20:16 HIV P24 Antigen Non-Reactive (Non-Reactive) 02/22/17 20:16 Influenza Type A RNA Not Detected (Not Detectd) 02/22/17 20:16 Influenza Type B (PCR) Not Detected (Not Detectd) 02/22/17 20:16 Microbiology 02/25/17 06:52 Blood Blood Culture Gram Stain - Final 02/25/17 06:52 Blood Blood Culture - Final Methicillin resist S. aureus 02/26/17 11:35 Blood Blood Culture - Preliminary No Growth after 24 hours 02/25/17 06:52 Blood Blood Culture - Preliminary No Growth after 48 hours 02/23/17 08:47 Blood Blood Culture Gram Stain - Final 02/23/17 08:47 Blood Blood Culture - Final Staphylococcus aureus 02/25/17 07:18 Blood Blood Culture - Final 02/22/17 20:16 Urine,Voided Urine Culture - Final Escherichia coli 02/22/17 20:10 Blood Blood Culture Gram Stain - Final 02/22/17 20:10 Blood Blood Culture - Final Staphylococcus aureus 02/23/17 08:47 Blood Blood Culture - Final 02/22/17 20:10 Blood Blood Culture - Final Assessment and Plan (1) Septic pulmonary embolism Current Visit: Yes Status: Acute Code(s): I26.90 - SEPTIC PULMONARY EMBOLISM WITHOUT ACUTE COR PULMONALE SNOMED Code(s): 439709345 (2) 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 Her significant other in sexual partner is present. She has exposure to hepatitis C. Testing is in process. Partner does not have HIV infection. Patient is instructed her HIV test has come back negative and hepatitis C is positive. Patient is instructed about the significant serious nature of her infection and the requirement for many weeks of antibiotic therapy to allow cure of her infection. Noncompliance with the plan could result in worsening infection and her . We discussed that with her active injection drug use and attempts to use heroin during this hospital stay would make any type of more permanent IV access not amenable. We will work with her insurance company to see if she has a candidate for the linezolide therapy. If we can obtain negative blood cultures she potentially could be discharged to her drug rehabilitation facility on . Patient relates she is now planning to her sister's house at discharge he will need to get to rehab. We discussed the absolute importance of rehab and her overall recovery. She must take her antibiotic therapy if not she intentionally will . We'll reduce her dose and frequency of morphine today. Toradol is added to her morphine to enhance her pain control somewhat. Current Visit: Yes Status: Acute Code(s): I33.0 - ACUTE AND SUBACUTE INFECTIVE ENDOCARDITIS; B95.61 - METHICILLIN SUSCEP STAPH INFCT CAUSING DIS CLASSD [id number] SNOMED Code(s): 04087101 (3) Uses drugs by injection Current Visit: Yes Status: Acute Code(s): BGS9941 - SNOMED Code(s): 698919042
[2017-02-28] MEDS ORDERED: MORPHINE SULFATE 2 MG/ML SYRINGE ONE ×2 (00:15)
[2017-02-28] MEDS: KETOROLAC 30 MG/ML 1 ML VIAL IVP SCH ×2 (05:47→12:12)
[2017-02-28 07:58] VITALS: PULSE 87; RESP 18
[2017-02-28] MEDS: MORPHINE SULFATE 2 MG/ML SYRINGE IVP PRN ×3 (08:17→16:15)
[2017-02-28] MEDS: ceFAZolin IN SWFI 2 GM/20 ML SYRINGE IVP SCH ×2 (08:20→16:14)
[2017-02-28] MEDS: PANTOPRAZOLE 40 MG TABLET PO SCH (08:21)
[2017-02-28] MEDS: ENOXAPARIN 40 MG/0.4 ML SYRINGE SQ SCH (08:22)
[2017-02-28 09:28] LABS: Basophils # (A) 0.1 k/uL (0-0.2); Basophils % (A) 1 %; Eosinophils # (A) 0.1 k/uL (0-0.7); Eosinophils % (A) 1 %; HCT 36.4 % (34.0-46.0); HGB 11.8 gm/dL (11.4-16.0); Lymphocytes # (A) 1.9 k/uL (1.0-4.8); Lymphocytes % (A) 20 %; MCH 27.5 pg (25.0-35.0); MCHC 32.4 g/dL (31.0-37.0); Mean Platelet Volume 9.4; Monocytes # (A) 0.4 k/uL (0-1.0); Monocytes % (A) 4 %; Neutrophils # (A) 7.1 k/uL (1.3-7.7); Neutrophils % (A) 74 %; Platelet Count 347 k/uL (150-450); RBC 4.28 m/uL (3.80-5.40); RDW 14.5 % (11.5-15.5); WBC 9.6 k/uL (3.8-10.6)
[2017-02-28 09:39] LABS: Anion Gap 8 mmol/L; Blood Urea Nitrogen 8 mg/dL (7-17); Calcium 8.7 mg/dL (8.4-10.2); Carbon Dioxide 23 mmol/L (22-30); Chloride 112 mmol/L (98-107); Glucose 101 mg/dL (74-99); Sodium 143 mmol/L (137-145)
[2017-02-28 11:09] LABS: Poikilocytosis (M) Present
[2017-02-28] MEDS: THIAMINE 100 MG TAB PO SCH ×2 (12:13→16:14)
[2017-02-28 15:50] VITALS: BP 129/91; TEMP 97.9
--- NOTE | 2017-03-19 06:10 | DS ---
DISCHARGE SUMMARY DATE OF ADMISSION: 02/22/2017 DATE OF DISCHARGE: 02/28/2017 ADMISSION DIAGNOSES: Admission diagnoses on the patient were: 1. Chest pain and shortness of breath due to septic pulmonary embolism. 2. 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 3. Gram-positive cocci septicemia. 4. Acute urinary tract infection. 5. Active heroin IV drug use. 6. Polysubstance abuse. 7. Hypovolemic hyponatremia. 8. Elevated liver enzymes. 9. Previous history of benzodiazepine overdose. 10.Deep venous thrombosis prophylaxis. BRIEF HISTORY ON THIS PATIENT: This was a 31-year-old female patient with polysubstance abuse who came to the hospital with a complaint of not feeling well for a week and with chest pains off and on , which were mainly to the anterior chest to the sternal area for about 2 weeks, which made her come to the hospital. Patient denied any cough or sputum production. The pain was getting worse on deep breathing. Patient had CT of the chest done with multiple pulmonary infarcts with cavitation, possibility of septic emboli with mild right lower lobe pneumonia. The patient had a 2-D echocardiogram done which showed an ejection fraction of 55% to 60% with vegetation seen on tricuspid valve. PHYSICAL EXAMINATION: On physical examination: CONSTITUTIONAL: Patient was awake, alert, in distress. VITAL SIGNS: On admission, temperature of 102.9, pulse 130, respiration 18, blood pressure 110/60, O2 saturation 95%. HEENT: Atraumatic, normocephalic. Pupils equal and reactive to light. Extraocular movements intact. Buccal mucosa moist. NECK: Supple. No goiter or lymphadenopathy. JVD negative. No carotid bruit heard. LUNGS: Decreased breath sounds. Diffuse wheezing. HEART: Regular rate and rhythm with systolic murmur. ABDOMEN: Soft, nontender, nondistended. Bowel sounds are positive. EXTREMITIES: No edema, clubbing or cyanosis. LABS: CBC, white blood count of 10, hemoglobin 12.1, hematocrit 32.5, and platelet count of 103. Chemical profile: Sodium 141, potassium 4.2, BRIEF HOSPITAL COURSE: The patient was seen by all the specialties. Patient required a lot of IV pain medication, Dilaudid and Toradol. Patient's cultures came back negative. Patient 's antibiotics were switched to vancomycin and cefazolin on ID recommendations. Repeat blood cultures unremarkable. Patient continued to show improvement with above treatment. She was recommended to be transferred to rehab for substance abuse and for continued IV antibiotic treatment. Counseling was done on the risks and complications of continued drug abuse. The patient did understand that completely. The patient did not have any further complications after that. She was then discharged with the plan to continue IV antibiotics post discharge. Follow up with Infectious Disease and ID as an outpatient for further recommendations and continuation of antibiotics due to negative blood cultures. ID recommended antibiotics to be switched to oral. Discharge antibiotics were Zyvox 600 mg p.o. b.i.d. 1. Protonix 40 mg daily. 2. Thiamine 100 mg p.o. daily. The patient was counseled to seek substance abuse treatment as outpatient. The patient and family understood. She did not have any further complications. She was then discharged in stable condition. MMODL / ABILION: [id number] / MTDD
== END 2017-02-28 17:45 | disposition home or self-care (01) | DRG 871 ==
LOC: EC 18:53 → 6ICU 22:24 → 5MS5E 02-23 23:01
PROVIDERS: ADMIT Hospitalist; ATTEND Hospitalist
DX: A41.89 Other specified sepsis (principal); I26.90 Septic pulmonary embolism without acute cor pulmonale; I33.0 Acute and subacute infective endocarditis; J18.9 Pneumonia, unspecified organism; E87.1 Hypo-osmolality and hyponatremia; N39.0 Urinary tract infection, site not specified; F11.10 Opioid abuse, uncomplicated; F13.10 Sedative, hypnotic or anxiolytic abuse, uncomplicated; F17.200 Nicotine dependence, unspecified, uncomplicated; I07.1 Rheumatic tricuspid insufficiency; I27.20 Pulmonary hypertension, unspecified; W19.XXXA Unspecified fall, initial encounter; Y92.009 Unspecified place in unspecified non-institutional (private) residence as the place of occurrence of the external cause; Z20.5 Contact with and (suspected) exposure to viral hepatitis
CPT/HCPCS: 36415; 71045; 71046; 71275; 80048; 80051; 80053; 80074; 80202; 80306; 81001; 81025; 82550; 82553; 83690; 83735; 84100; 84484; 85025; 85379; 85610; 85730; 87040; 87077; 87086; 87186; 87390; 87502; 93005; 93306; 96361; 96365; 96368; 96375; 99291

== ENCOUNTER → 2018-04-05 | Outpatient (CLI) | payer OTHER ==
[2018-04-05 18:15] LABS: Vitamin D 25 Hydroxy 21.6 ng/mL (30.0-100.0)
[2018-04-05 18:38] LABS: Albumin 4.4 g/dL (3.80-4.90); Albumin/Globulin Ratio 2.2 (1.60-3.17); Anion Gap 7.6 mmol/L (4.00-12.00); Calcium 9.5 mg/dL (8.7-10.3); Carbon Dioxide 25.4 mmol/L (21.6-31.8); Folate, Serum 13.2 ng/mL; LDL Cholesterol,Calculated 108.4 mg/dL (0.0-131.0); Potassium 4.8 mmol/L (3.5-5.5); T4, Free (Free Thyroxine) 1.3 ng/dL (0.80-1.80); Total Bilirubin 0.7 mg/dL (0.2-1.2); Total Protein 6.4 g/dL (6.2-8.2); VLDL Calculation 27.6 mg/dL (5.00-40.00)
[2018-04-05 18:57] LABS: Hepatitis C IgG Antibody Reactive (Non-Reactive)
[2018-04-05 20:32] LABS: HIV 1 AB Non-Reactive (Non-Reactive); HIV AB P24 Non-Reactive (Non-Reactive); HIV P24 AG Non-Reactive (Non-Reactive)
[2018-04-08 08:24] LABS: Hepatits C Virus RNA Not detected (Not detected); Hepatits C Virus RNA, Quant <12 IU/mL (<12); LOG HCV IU/mL <1.08 (<1.08)
[2018-04-10 07:26] LABS: Vit B1(Thiamine) 78 ug/L (38-122)
== END | disposition home or self-care (01) ==
LOC: LABWHC1 10:03
PROVIDERS: ATTEND Nurse Practitioner Family
DX: F11.20 Opioid dependence, uncomplicated (principal); Z86.19 Personal history of other infectious and parasitic diseases
CPT/HCPCS: 36415; 80053; 80061; 82306; 82607; 82746; 84425; 84439; 84443; 86803; 87390; 87522

== ENCOUNTER → 2018-04-12 | Outpatient (CLI) | payer OTHER ==
[2018-04-15 10:12] LABS: Hepatits C Virus RNA Not detected (Not detected); Hepatits C Virus RNA, Quant <12 IU/mL (<12); LOG HCV IU/mL <1.08 (<1.08)
== END | disposition home or self-care (01) ==
LOC: LABWHC1 11:22
PROVIDERS: ATTEND Nurse Practitioner Family
DX: Z09 Encounter for follow-up examination after completed treatment for conditions other than malignant neoplasm (principal); Z86.19 Personal history of other infectious and parasitic diseases
CPT/HCPCS: 36415; 87522

== ENCOUNTER 2019-03-31 22:07 | Emergency (ER) | payer OTHER ==
--- NOTE | 2019-03-31 22:50 | ED ---
General Adult HPI - General Chief complaint: Abdominal Pain Stated complaint: upper abd pain Time Seen by Provider: 03/31/19 22:14 Source: patient Mode of arrival: ambulatory Limitations: no limitations - History of Present Illness Initial comments: This patient is a 33-year-old woman who presents with the complaint that she's been having some upper abdominal discomfort and was concerned that she may be developing jaundice. She states that she had looked in mirror and felt that her eyes were a bit yellowish. The patient does have history of hepatitis C. Patient had not had treatment. She states the abdominal pain is located in the upper abdomen, mild, dull and there were no worsening or relieving factors. No change in urine or stool. Onset/Timin -: days(s) Location: abdomen Radiation: non-radiation Quality: dull Consistency: intermittent Improves with: none Worsens with: none Associated Symptoms: denies other symptoms Treatments Prior to Arrival: none - Related Data Previous Rx's Medication Instructions Recorded Linezolid [Zyvox] 600 mg PO Q12H 60 Days #120 tab 02/28/17 Pantoprazole [Protonix] 40 mg PO AC-[id number] #30 tablet. 02/28/17 Thiamine [Vitamin B-1] 100 mg PO BID@1200,1700 #60 tab 02/28/17 Allergies Allergy/AdvReac Type Severity Reaction Status Date / Time No Known Allergies Allergy Verified 03/31/19 22:12 Review of Systems ROS Statement: Those systems with pertinent positive or pertinent negative responses have been documented in the HPI. ROS Other: All systems not noted in ROS Statement are negative. Constitutional: Denies: fever, chills Eyes: Reports: as per HPI, other Respiratory: Denies: cough, dyspnea Cardiovascular: Denies: chest pain, palpitations, edema, syncope Gastrointestinal: Reports: as per HPI, abdominal pain. Denies: nausea, vomiting, diarrhea, constipation, melena, hematochezia Genitourinary: Denies: dysuria, hematuria, abnormal menses Musculoskeletal: Denies: back pain Skin: Denies: rash Neurological: Denies: headache, weakness, numbness Past Medical History Additional Past Medical History / Comment(s): Tacho tunnel, colitis, UTI History of Any Multi-Drug Resistant Organisms: MRSA Date of last positivie culture/infection: 02/25/17 MDRO Source:: Blood culture Past Surgical History: No Surgical Hx Reported Past Anesthesia/Blood Transfusion Reactions: No Reported Reaction Past Psychological History: Depression Smoking Status: Current every day smoker Past Alcohol Use History: None Reported Past Drug Use History: Heroin - Past Family History Father Family Medical History: No Reported History Sister(s) Family Medical History: No Reported History General Exam Limitations: no limitations General appearance: alert, in no apparent distress Head exam: Present: atraumatic, normocephalic Respiratory exam: Present: normal lung sounds bilaterally. Absent: respiratory distress, wheezes, rales, rhonchi, stridor Cardiovascular Exam: Present: regular rate, normal rhythm, normal heart sounds. Absent: systolic murmur, diastolic murmur, rubs, gallop GI/Abdominal exam: Present: soft. Absent: distended, tenderness, guarding, rebound, rigid, mass Extremities exam: Present: normal inspection, normal capillary refill. Absent: pedal edema, calf tenderness Back exam: Present: normal inspection. Absent: CVA tenderness (R), CVA tenderness (L) Neurological exam: Present: alert Skin exam: Present: warm, dry, intact, normal color. Absent: rash Course Vital Signs 03/31/19 22:08 Temperature 98.2 F Pulse Rate 85 Respiratory 20 Rate Blood Pressure 131/80 O2 Sat by Pulse 100 Oximetry Medical Decision Making - Lab Data Result diagrams: 03/31/19 23:07 03/31/19 23:07 Lab Results 03/31/19 03/31/19 03/31/19 Range/Units 23:07 23:07 23:07 WBC 12.4 H (3.8-10.6) k/uL RBC 5.30 (3.80-5.40) m/uL Hgb 14.7 (11.4-16.0) gm/dL Hct 45.6 (34.0-46.0) % MCV 86.0 (80.0-100.0) fL MCH 27.7 (25.0-35.0) pg MCHC 32.2 (31.0-37.0) g/dL RDW 13.8 (11.5-15.5) % Plt Count 162 (150-450) k/uL Neutrophils % (Manual) 25 % Lymphocytes % (Manual) 74 % Eosinophils % (Manual) 1 % Neutrophils # (Manual) 3.10 (1.3-7.7) k/uL Lymphocytes # (Manual) 9.18 H (1.0-4.8) k/uL Eosinophils # (Manual) 0.12 (0-0.7) k/uL Nucleated RBCs 0 (0-0) /100 WBC Manual Slide Review Performed Reactive Lymphocytes Present Large Platelets Present Sodium 135 L (137-145) mmol/L Potassium 3.9 (3.5-5.1) mmol/L Chloride 99 (98-107) mmol/L Carbon Dioxide 27 (22-30) mmol/L Anion Gap 9 mmol/L BUN 17 (7-17) mg/dL Creatinine 0.49 L (0.52-1.04) mg/dL Est GFR (CKD-EPI)AfAm >90 (>60 ml/min/1.73 sqM) Est GFR (CKD-EPI)NonAf >90 (>60 ml/min/1.73 sqM) Glucose 119 H (74-99) mg/dL Calcium 8.9 (8.4-10.2) mg/dL Total Bilirubin 5.8 H (0.2-1.3) mg/dL AST 820 H (14-36) U/L ALT 1226 H (4-34) U/L Alkaline Phosphatase 330 H (38-126) U/L Total Protein 6.9 (6.3-8.2) g/dL Albumin 3.8 (3.5-5.0) g/dL Amylase <30 L (30-110) U/L Lipase 25 (23-300) U/L Urine Color Urine Appearance (Clear) Urine pH (5.0-8.0) Ur Specific [place] (1.001-1.035) Urine Protein (Negative) Urine Glucose (UA) (Negative) Urine Ketones (Negative) Urine Blood (Negative) Urine Nitrite (Negative) Urine Bilirubin (Negative) Urine Urobilinogen (<2.0) mg/dL Ur Leukocyte Esterase (Negative) Urine RBC (0-5) /hpf Urine WBC (0-5) /hpf Ur Squamous Epith Cells (0-4) /hpf Urine Bacteria (None) /hpf Urine Mucus (None) /hpf Urine HCG, Qual Not Detected (Not Detectd) 03/31/19 Range/Units 23:07 WBC (3.8-10.6) k/uL RBC (3.80-5.40) m/uL Hgb (11.4-16.0) gm/dL Hct (34.0-46.0) % MCV (80.0-100.0) fL MCH (25.0-35.0) pg MCHC (31.0-37.0) g/dL RDW (11.5-15.5) % Plt Count (150-450) k/uL Neutrophils % (Manual) % Lymphocytes % (Manual) % Eosinophils % (Manual) % Neutrophils # (Manual) (1.3-7.7) k/uL Lymphocytes # (Manual) (1.0-4.8) k/uL Eosinophils # (Manual) (0-0.7) k/uL Nucleated RBCs (0-0) /100 WBC Manual Slide Review Reactive Lymphocytes Large Platelets Sodium (137-145) mmol/L Potassium (3.5-5.1) mmol/L Chloride (98-107) mmol/L Carbon Dioxide (22-30) mmol/L Anion Gap mmol/L BUN (7-17) mg/dL Creatinine (0.52-1.04) mg/dL Est GFR (CKD-EPI)AfAm (>60 ml/min/1.73 sqM) Est GFR (CKD-EPI)NonAf (>60 ml/min/1.73 sqM) Glucose (74-99) mg/dL Calcium (8.4-10.2) mg/dL Total Bilirubin (0.2-1.3) mg/dL AST (14-36) U/L ALT (4-34) U/L Alkaline Phosphatase (38-126) U/L Total Protein (6.3-8.2) g/dL Albumin (3.5-5.0) g/dL Amylase (30-110) U/L Lipase (23-300) U/L Urine Color [place] Urine Appearance Cloudy H (Clear) Urine pH 6.0 (5.0-8.0) Ur Specific [place] 1.027 (1.001-1.035) Urine Protein 1+ H (Negative) Urine Glucose (UA) Negative (Negative) Urine Ketones 1+ H (Negative) Urine Blood Negative (Negative) Urine Nitrite Negative (Negative) Urine Bilirubin 2+ H (Negative) Urine Urobilinogen 12.0 (<2.0) mg/dL Ur Leukocyte Esterase Moderate H (Negative) Urine RBC 3 (0-5) /hpf Urine WBC 10 H (0-5) /hpf Ur Squamous Epith Cells 46 H (0-4) /hpf Urine Bacteria Rare H (None) /hpf Urine Mucus Occasional H (None) /hpf Urine HCG, Qual (Not Detectd) Disposition Clinical Impression: Hepatitis Disposition: HOME SELF-CARE Condition: Fair Instructions (If sedation given, give patient instructions): Hepatitis C (ED) Is patient prescribed a controlled substance at d/c from ED?: No Referrals: Forest Arce MD [Primary Care Provider] - 1-2 days Valentin Silva MD [STAFF PHYSICIAN] - 1-2 days
[2019-03-31 23:16] LABS: HCT 45.6 % (34.0-46.0); HGB 14.7 gm/dL (11.4-16.0); MCH 27.7 pg (25.0-35.0); MCHC 32.2 g/dL (31.0-37.0); Mean Platelet Volume 11.3; Platelet Count 162 k/uL (150-450); RDW 13.8 % (11.5-15.5); WBC 12.4 k/uL (3.8-10.6)
[2019-03-31 23:31] LABS: African American GFR (CKD) >90 (>60 ml/min/1.73 sqM); Albumin 3.8 g/dL (3.5-5.0); Alkaline Phosphatase 330 U/L (38-126); Amylase <30 U/L (30-110); Anion Gap 9 mmol/L; Blood Urea Nitrogen 17 mg/dL (7-17); Calcium 8.9 mg/dL (8.4-10.2); Carbon Dioxide 27 mmol/L (22-30); Chloride 99 mmol/L (98-107); Glucose 119 mg/dL (74-99); Non-African American GFR(CKD) >90 (>60 ml/min/1.73 sqM); Potassium 3.9 mmol/L (3.5-5.1); Sodium 135 mmol/L (137-145); Total Bilirubin 5.8 mg/dL (0.2-1.3); Total Protein 6.9 g/dL (6.3-8.2)
[2019-03-31 23:38] LABS: AST 820 U/L (14-36)
[2019-03-31 23:39] LABS: ALT 1226 U/L (4-34)
[2019-03-31 23:45] LABS: Appearance,Urine Cloudy (Clear); Bacteria,Urine Rare /hpf; Bilirubin,Urine 2+ (Negative); Blood,Urine Negative (Negative); Color,Urine Orange; Glucose,Urine (UA) Negative (Negative); Ketones,Urine 1+ (Negative); Leukocyte Esterase,Urine Moderate (Negative); Mucus,Urine Occasional /hpf; Nitrite,Urine Negative (Negative); Protein,Urine 1+ (Negative); RBC,Urine 3 /hpf (0-5); Specific Gravity,Urine 1.027 (1.001-1.035); Squamous Epithelial Cell,Urine 46 /hpf (0-4); WBC,Urine 10 /hpf (0-5)
[2019-04-01 00:08] LABS: Eosinophils # (M) 0.12 k/uL (0-0.7); Lymphocytes # (M) 9.18 k/uL (1.0-4.8); Neutrophils % (M) 25 %; Nucleated Red Blood Cells 0 /100 WBC (0-0); Total Cells Counted 100
[2019-04-01 00:10] LABS: Large Platelets Present; Reactive Lymphocytes Present
--- NOTE | 2019-04-01 00:39 | US ---
EXAMINATION TYPE: US abdomen limited DATE OF EXAM: 04/01/2019 COMPARISON: US, CT CLINICAL HISTORY: attention RUQ, acute abdominal pain. Attention RUQ. Acute abdominal pain x 2 days. EXAM MEASUREMENTS: Liver Length: 19.2 cm Gallbladder Wall: 0.22 cm CBD: 0.32 cm Right Kidney: 10.8 x 5.0 x 3.8 cm Patient gassy. Pancreas: Limited visibility of tail. Liver: Appears enlarged. Gallbladder: Very minimal amount of internal echoes seen versus artifact. Evidence for sonographic Miranda's sign: No CBD: Appears wnl. Right Kidney: No hydronephrosis or masses seen IMPRESSION: Negative exam. No gallstones or dilated ducts.
[2019-04-01 01:17] VITALS: BP 103/70; PULSE 84; RESP 16; TEMP 98
== END 2019-04-01 01:18 | disposition home or self-care (01) ==
LOC: EC 22:07
DX: K75.9 Inflammatory liver disease, unspecified (principal); F17.200 Nicotine dependence, unspecified, uncomplicated
CPT/HCPCS: 36415; 76705; 80053; 81001; 81025; 82150; 83690; 85025; 99284

== ENCOUNTER → 2020-01-08 | Outpatient (CLI) | payer OTHER ==
--- NOTE | 2020-01-08 09:54 | US ---
EXAMINATION TYPE: US abdomen complete DATE OF EXAM: 01/08/2020 COMPARISON: NONE CLINICAL HISTORY: 34-year-old female R14.0 Abdominal distension (gaseous). TECHNIQUE: Multiple sonographic images of the abdomen are obtained. FINDINGS: EXAM MEASUREMENTS: Liver Length: 18.2 cm Gallbladder Wall: .3 cm CBD: .4 cm Spleen: 13 cm Right Kidney: 9.6 x 3.6 x 4.4 cm Left Kidney: 10.9 x 4.0 x 3.9 cm Pancreas: Only portions of the pancreatic neck and head are visualized. Most of the pancreatic body and tail are obscured by shadowing from bowel gas. Liver: Mildly enlarged but with overall homogeneous, normal echotexture. No focal lesion. Gallbladder: wnl Evidence for sonographic Miranda's sign: No CBD: wnl Spleen: wnl Right Kidney: wnl Left Kidney: wnl Upper IVC: wnl Abd Aorta: wnl IMPRESSION: Mild hepatomegaly (18.2 cm) but with overall normal homogeneous appearance to the parenchyma. No gall stones or biliary ductal dilatation.
== END | disposition home or self-care (01) ==
LOC: RADUSWWP 08:16
PROVIDERS: ATTEND Internal Medicine Gastroenterology
DX: R16.0 Hepatomegaly, not elsewhere classified (principal)
CPT/HCPCS: 76700

== ENCOUNTER → 2022-12-20 | Outpatient (CLI) | payer OTHER ==
[2022-12-20 16:19] LABS: Basophils # (A) 0.08 X 10*3/uL (0.00-0.10); Basophils % (A) 1.1 %; Eosinophils # (A) 0.59 X 10*3/uL (0.04-0.35); Eosinophils % (A) 8.1 %; HCT 40.9 % (37.2-46.3); HGB 13.2 g/dL (12.0-15.0); Lymphocytes # (A) 2.22 X 10*3/uL (0.90-5.00); Lymphocytes % (A) 30.4 %; MCH 27.6 pg (27.0-32.0); MCHC 32.3 g/dL (32.0-37.0); MCV 85.6 FL (80.0-97.0); Mean Platelet Volume 12.9 FL (9.5-12.2); Monocytes % (A) 4.1 %; NRBC Per 100 WBC 0 X 10*3/uL (0.00-0.01); Neutrophils # (A) 4.11 X 10*3/uL (1.80-7.70); Neutrophils % (A) 56.2 %; Platelet Count 227 X 10*3/uL (140-440); RBC 4.78 X 10*6/uL (4.10-5.20); RDW 14.8 % (11.5-14.5); WBC 7.31 X 10*3/uL (4.50-10.00)
[2022-12-20 16:56] LABS: ALT 21 U/L (8-44); AST 16 U/L (13-35); Albumin 4.2 g/dL (3.8-4.9); Alkaline Phosphatase 69 U/L (41-126); BUN/Creat Ratio 17.25 Ratio (12.00-20.00); Blood Urea Nitrogen 13.8 mg/dL (9.0-27.0); Calcium 9.5 mg/dL (8.7-10.3); Carbon Dioxide 26.5 mmol/L (21.6-31.8); Chloride 104 mmol/L (96-109); Globulin 2.1 g/dL (1.6-3.3); Glucose 122 mg/dL (70-110); Potassium 4.5 mmol/L (3.5-5.5); Sodium 141 mmol/L (135-145); Total Bilirubin <0.2 mg/dL (0.3-1.2); Total Protein 6.3 g/dL (6.2-8.2)
[2022-12-20 17:10] LABS: Appearance,Urine Clear (Clear); Bilirubin,Urine Negative (Negative); Blood,Urine Negative (Negative); Color,Urine Yellow (Yellow); Ketones,Urine Negative (Negative); Nitrite,Urine Negative (Negative); PH, Urine 5.5; Specific Gravity,Urine 1.008 (1.001-1.030); Urobilinogen,Urine 0.2 E.U./DL
== END | disposition home or self-care (01) ==
LOC: LABWHC1 09:49
PROVIDERS: ATTEND Psychologist Clinical
DX: F11.20 Opioid dependence, uncomplicated (principal)
CPT/HCPCS: 36415; 80053; 81003; 85025; 86780; 87340